=== PATIENT | male | born 1955 | race Caucasian/White ===

== ENCOUNTER 2017-08-31 12:44 | Emergency (ER) | payer OTHER, MEDICARE ==
[2017-08-31 15:14] LABS: HEMOGLOBIN 13.1 g/dl (14.0-18.0); MEAN CORPUSCULAR HEMOGLOBIN 28.4 pg (27.0-33.0); MEAN CORPUSCULAR HGB CONC 34.5 g/dl (32.0-36.5); MEAN CORPUSCULAR VOLUME 82.3 fl (80.0-96.0); PLATELET COUNT, AUTOMATED 242 10^3/uL (150-450); RED BLOOD COUNT 4.62 10^6/uL (4.30-6.10); RED CELL DISTRIBUTION WIDTH 11.8 % (11.5-14.5)
[2017-08-31 15:34] LABS: ALBUMIN 3.3 GM/DL (3.2-5.2); ALBUMIN/GLOBULIN RATIO 0.89 (1.00-1.93); ALKALINE PHOSPHATASE 113 U/L (45-117); ALT/SGPT 21 U/L (12-78); ANION GAP 7 MEQ/L (8-16); AST/SGOT 17 U/L (7-37); BILIRUBIN,DIRECT < 0.1 MG/DL (0.0-0.2); BILIRUBIN,TOTAL 0.3 MG/DL (0.2-1.0); BLOOD UREA NITROGEN 11 MG/DL (7-18); CALCIUM LEVEL 8.5 MG/DL (8.8-10.2); CARBON DIOXIDE LEVEL 30 MEQ/L (21-32); CHLORIDE LEVEL 101 MEQ/L (98-107); CREATININE FOR GFR 0.85 MG/DL (0.70-1.30); ETHYL ALCOHOL (ETHANOL) < 0.003 % (0.000-0.010); GLOMERULAR FILTRATION RATE > 60.0 (>49); GLUCOSE, FASTING 285 MG/DL (70-100); POTASSIUM SERUM 4.2 MEQ/L (3.5-5.1); SALICYLATE LEVEL < 1.7 MG/DL (5.0-30.0); SODIUM LEVEL 138 MEQ/L (136-145); THYROID STIMULATING HORMONE 0.792 uIU/ML (0.358-3.740)
[2017-08-31 15:37] LABS: ACETAMINOPHEN LEVEL < 2.0 UG/ML (10.0-30.0)
[2017-08-31 17:11] LABS: KETONE, URINE AUTO RFX TRACE mg/dL (NEGATIVE); LEUKOCYTE ESTERASE UR AUTO RFX NEGATIVE (NEGATIVE); NITRITE, URINE AUTO RFX NEGATIVE (NEGATIVE); RBC, URINE AUTO RFX 0 /HPF (0-3); SPECIFIC GRAVITY UR AUTO RFX 1.027 (1.002-1.035); SQUAM EPITHELIAL CELL UR AURFX 0 /HPF (0-6); WBC, URINE AUTO RFX 1 /HPF (0-3)
[2017-08-31 17:27] LABS: AMPHETAMINES LEVEL URINE NEGATIVE (NEGATIVE); BARBITURATES URINE NEGATIVE (NEGATIVE); BENZODIAZEPINES URINE NEGATIVE (NEGATIVE); CANNABINOIDS URINE NEGATIVE (NEGATIVE); COCAINE METABOLITE URINE NEGATIVE (NEGATIVE); METHADONE URINE NEGATIVE (NEGATIVE); OPIATES URINE NEGATIVE (NEGATIVE); PHENCYCLIDINE URINE NEGATIVE (NEGATIVE)
[2017-08-31] MEDS: LORazepam 2 MG TAB PO (17:50)
== END 2017-08-31 17:56 | disposition home or self-care (01) ==
LOC: M ED 12:44
DX: F43.9 Reaction to severe stress, unspecified (principal); E11.9 Type 2 diabetes mellitus without complications; I10 Essential (primary) hypertension; F79 Unspecified intellectual disabilities
CPT/HCPCS: 84443

== ENCOUNTER 2018-05-16 09:11 | Outpatient (RCR) | payer MEDICARE, MEDICAID | END 2018-05-31 | LOC: M PT 09:11 | DX: S72.145A Nondisplaced intertrochanteric fracture of left femur, initial encounter for closed fracture (principal) | CPT/HCPCS: 97110 ==

== ENCOUNTER 2018-06-01 10:30 | Outpatient (RCR) | payer MEDICARE | END 2018-06-30 | LOC: M PT 06-06 10:29 | DX: S72.145A Nondisplaced intertrochanteric fracture of left femur, initial encounter for closed fracture (principal); X58.XXXA Exposure to other specified factors, initial encounter | CPT/HCPCS: 97110 ==

== ENCOUNTER 2018-07-28 14:11 | Outpatient (RCR) | payer MEDICARE ==
[~2018-07-28 14:11] MED LIST: ATIV1TAB7 PO; AUGM875T28 PO; HUMA100I3 SC; LISI10TA4 PO; LORA1TAB12 PO; MAGN400T5 PO; PANT40TA3 PO
== END 2018-07-31 ==
LOC: M PT 14:11
PROVIDERS: ATTEND Family Medicine
DX: S72.145A Nondisplaced intertrochanteric fracture of left femur, initial encounter for closed fracture (principal)

== ENCOUNTER 2018-08-17 11:30 | Outpatient (RCR) | payer MEDICARE | END 2018-08-31 | LOC: M PT 11:30 | PROVIDERS: ATTEND Family Medicine | DX: Z47.89 Encounter for other orthopedic aftercare (principal); Z98.890 Other specified postprocedural states; M25.552 Pain in left hip ==

== ENCOUNTER 2019-09-06 09:15 | Emergency (ER) | payer MEDICARE, MEDICAID ==
[~2019-09-06] VITALS: Ht 170.2 cm; Wt 60.9 kg
[~2019-09-06 09:15] MED LIST changes: -LORA1TAB12 PO; +LORA1TAB4 PO
[2019-09-06] MEDS ORDERED: tylenol 2 tabs (09:31)
[2019-09-06] MEDS ORDERED: PROZ40CA PO (09:50)
[2019-09-06] MEDS ORDERED: RISP1TAB3 (09:50)
[2019-09-06] MEDS ORDERED: METF-791 (09:50)
[2019-09-06] MEDS ORDERED: DIVA250T67 (09:50)
[2019-09-06] MEDS ORDERED: ATOR1TAB19 (09:50)
[2019-09-06] MEDS ORDERED: REME15TA2 PO (09:50)
[2019-09-06] MEDS ORDERED: TAMS1CAP17 (09:50)
--- NOTE | 2019-09-06 10:42 | REP ---
Right ribs for views: There are fractures laterally of the right eighth and ninth ribs. AP chest with the patient supine: : Supine positioning precludes evaluation for pneumothorax. There is no hemothorax or pulmonary contusion. Lung moss are clear. Cardiac size is upper normal. The lynette, mediastinum, skeletal structures are unremarkable. Impression: Negative AP supine chest. Electronically Signed by Yuan Wang MD 09/06/2019 10:33 A
[2019-09-06] MEDS ORDERED: ULTR50TA8 PO (10:48)
[2019-09-06 11:08] VITALS: BP 141/74
== END 2019-09-06 11:18 | disposition home or self-care (01) ==
LOC: M ED 09:15
DX: S22.41XA Multiple fractures of ribs, right side, initial encounter for closed fracture (principal); W18.43XA Slipping, tripping and stumbling without falling due to stepping from one level to another, initial encounter; Y92.89 Other specified places as the place of occurrence of the external cause; Y93.89 Activity, other specified; Y99.9 Unspecified external cause status; I10 Essential (primary) hypertension; E11.9 Type 2 diabetes mellitus without complications; F79 Unspecified intellectual disabilities; Z79.84 Long term (current) use of oral hypoglycemic drugs; Z79.899 Other long term (current) drug therapy; Z88.8 Allergy status to other drugs, medicaments and biological substances

== ENCOUNTER → 2020-10-10 | Outpatient (CLI) | payer MEDICARE, MEDICAID ==
[~2020-10-10] MED LIST changes: +ATOR1TAB19; +DIVA250T67; +LISI10TA22 PO; -LISI10TA4 PO; +METF-838; +PANT40TA29 PO; -PANT40TA3 PO; +PROZ40CA PO; +REME15TA2 PO; +RISP-8; +TAMS1CAP17; +ULTR50TA8 PO; +tylenol 2 tabs
--- NOTE | 2020-10-10 10:45 | REP ---
INDICATION: PAIN COMPARISON: None. TECHNIQUE: AP, lateral, bilateral oblique views. FINDINGS: There is no bleak fracture of the distal fibular metadiaphysis with overlying soft tissue swelling. IMPRESSION: Acute oblique fracture of the distal fibula with overlying soft tissue swelling. <Electronically signed by Jesús Payne > 10/10/20 1043
== END ==
LOC: M WUC 09:58
PROVIDERS: ATTEND Physician Assistant
DX: S82.435A Nondisplaced oblique fracture of shaft of left fibula, initial encounter for closed fracture (principal); X58.XXXA Exposure to other specified factors, initial encounter; Y92.9 Unspecified place or not applicable

== ENCOUNTER → 2021-10-02 | Outpatient (CLI) | payer MEDICARE, MEDICAID | LOC: M LABSMTC 09:12 | PROVIDERS: ATTEND Preventive Medicine Undersea and Hyperbaric Medicine | DX: Z01.812 Encounter for preprocedural laboratory examination (principal); R63.4 Abnormal weight loss ==

== ENCOUNTER 2021-10-07 08:23 | Inpatient (IN) | payer MEDICARE, MEDICAID ==
[~2021-10-07] VITALS: Ht 170.2 cm; Wt 54.5 kg
[2021-10-07] MEDS: ENOXAPARIN 40MG/0.4ML SYRINGE (J1650 PER 10MG) SC SCH (09:00)
[2021-10-07 09:04] LABS: EOS % 0.1 % (0.0-3.0); HEMATOCRIT 26.4 % (42.0-52.0); HEMOGLOBIN 9.4 g/dl (13.5-17.5); LYMPH # 0.5 10^3/uL (1.5-5.0); LYMPH % 4.5 % (24.0-44.0); MEAN CORPUSCULAR HEMOGLOBIN 29.7 pg (27.0-33.0); MEAN CORPUSCULAR HGB CONC 35.6 g/dl (32.0-36.5); MEAN CORPUSCULAR VOLUME 83.3 fl (80.0-96.0); MONO # 0.4 10^3/uL (0.0-0.8); MONO % 3.7 % (2.0-8.0); NEUTROPHILS # 9.7 10^3/uL (1.5-8.5); NEUTROPHILS % 91.1 % (36.0-66.0); PLATELET COUNT, AUTOMATED 144 10^3/uL (150-450); RED BLOOD COUNT 3.17 10^6/uL (4.30-6.10); WHITE BLOOD COUNT 10.7 10^3/uL (4.0-10.0)
[2021-10-07 09:34] LABS: ALBUMIN 2.3 GM/DL (3.2-5.2); ALT/SGPT 35 U/L (12-78); BILIRUBIN,TOTAL 0.5 MG/DL (0.2-1.0); BLOOD UREA NITROGEN 11 MG/DL (7-18); CALCIUM LEVEL 8.1 MG/DL (8.8-10.2); CARBON DIOXIDE LEVEL 28 MEQ/L (21-32); CHLORIDE LEVEL 99 MEQ/L (98-107); CREATININE FOR GFR 0.49 MG/DL (0.70-1.30); GLOMERULAR FILTRATION RATE > 60.0 (>49); GLUCOSE, FASTING 118 MG/DL (70-100); SODIUM LEVEL 131 MEQ/L (136-145); TOTAL PROTEIN 5.4 GM/DL (6.4-8.2)
[2021-10-07 10:51] VITALS: O2SAT 84
[2021-10-07] MEDS ORDERED: cefTRIAXone SOD 2 GM in D5W MINI-BAG PLUS 50 ML IV ONE (10:55)
[2021-10-07] MEDS ORDERED: AZITHROMYCIN INJ 500 MG, VIAL MATE ADAPTER 1 EACH in NS 250 ML IV ONE (11:00)
[2021-10-07] MEDS ORDERED: ATIV1TAB7 PO (11:46)
[2021-10-07] MEDS ORDERED: CLIN-30 PO (11:46)
[2021-10-07] MEDS ORDERED: GLIP5TAB8 PO (11:46)
[2021-10-07] MEDS ORDERED: D-50TAB PO (11:46)
[2021-10-07] MEDS ORDERED: FORT600S SC (11:46)
[2021-10-07] MEDS ORDERED: PERI12LIQ PO (11:46)
[2021-10-07] MEDS ORDERED: MIRA3350 PO (11:46)
[2021-10-07] MEDS ORDERED: TRAD5TAB PO (11:46)
[2021-10-07] MEDS ORDERED: HOME MED LIST COMPLETE! XX SCH (11:50)
[2021-10-07] MEDS ORDERED: GLUCOSE 4GM CHEW TABLET PO PRN (11:50)
[2021-10-07] MEDS ORDERED: DEXTROSE 50% 50 ML SYRINGE IV PRN (11:50)
[2021-10-07] MEDS ORDERED: MOM 30ML SUSPENSION UDC PO PRN (11:50)
[2021-10-07] MEDS ORDERED: ACETAMINOPHEN TAB 650MG DOSE (2X325MG) PO PRN (11:50)
[2021-10-07] MEDS ORDERED: GLUCAGON INJ 1MG VIAL SC PRN (11:50)
[2021-10-07] MEDS: HumaLOG INSULIN (NovoLOG) PER UNIT SC SCH ×3 (12:00→20:51)
[2021-10-07] MEDS ORDERED: HumaLOG INSULIN (NovoLOG) PER UNIT SC SCH ×2 (12:00→21:00)
[2021-10-07 15:00] VITALS: BP_SYST 106; BP_SYST 109; BP_DIAS 56
[2021-10-07] MEDS: LORazepam 1 MG TAB PO SCH ×2 (16:53→20:56)
[2021-10-07] MEDS: CHLORHEXIDINE GLUCONATE 0.12 % 15ML UDC (PERIDEX ORAL RINSE) SSP SCH (20:56)
[2021-10-07 22:05] VITALS: BP 113/55
[2021-10-08 06:00] VITALS: BP 104/51
[2021-10-08 06:43] LABS: HEMATOCRIT 25.2 % (42.0-52.0); HEMOGLOBIN 8.9 g/dl (13.5-17.5); MEAN CORPUSCULAR HEMOGLOBIN 29.5 pg (27.0-33.0); MEAN CORPUSCULAR HGB CONC 35.3 g/dl (32.0-36.5); MEAN CORPUSCULAR VOLUME 83.4 fl (80.0-96.0); PLATELET COUNT, AUTOMATED 128 10^3/uL (150-450); RED BLOOD COUNT 3.02 10^6/uL (4.30-6.10); WHITE BLOOD COUNT 8.2 10^3/uL (4.0-10.0)
[2021-10-08 07:12] LABS: BLOOD UREA NITROGEN 8 MG/DL (7-18); CALCIUM LEVEL 8.1 MG/DL (8.8-10.2); CARBON DIOXIDE LEVEL 28 MEQ/L (21-32); CHLORIDE LEVEL 102 MEQ/L (98-107); CREATININE FOR GFR 0.47 MG/DL (0.70-1.30); GLOMERULAR FILTRATION RATE > 60.0 (>49); GLUCOSE, FASTING 88 MG/DL (70-100); MAGNESIUM LEVEL 1.7 MG/DL (1.8-2.4); POTASSIUM SERUM 3.6 MEQ/L (3.5-5.1); SODIUM LEVEL 135 MEQ/L (136-145)
[2021-10-08] MEDS: HumaLOG INSULIN (NovoLOG) PER UNIT SC SCH ×4 (07:30→19:56)
[2021-10-08 08:05] VITALS: BP 104/51
[2021-10-08 08:10] VITALS: BP 104/51
[2021-10-08] MEDS ORDERED: FORTEO SC SCH (09:00)
[2021-10-08] MEDS ORDERED: MIRALAX *UNIT DOSE* 17GM PACKET PO PRN (09:00)
[2021-10-08] MEDS: LORazepam 1 MG TAB PO SCH ×3 (09:07→20:45)
[2021-10-08] MEDS: CHLORHEXIDINE GLUCONATE 0.12 % 15ML UDC (PERIDEX ORAL RINSE) SSP SCH ×2 (09:08→20:45)
[2021-10-08] MEDS: ENOXAPARIN 40MG/0.4ML SYRINGE (J1650 PER 10MG) SC SCH (09:08)
[2021-10-08] MEDS ORDERED: cefTRIAXone SOD 2 GM in D5W MINI-BAG PLUS 50 ML IV SCH (11:00)
[2021-10-08] MEDS ORDERED: AZITHROMYCIN INJ 500 MG, VIAL MATE ADAPTER 1 EACH in NS 250 ML IV SCH (12:00)
[2021-10-08 13:46] VITALS: BP 82/46
[2021-10-08] MEDS: NS 1,000 ML IV SCH ×2 (14:20→23:42)
[2021-10-08 16:10] LABS: MYCOPLASMA PNEUMONIAE IgG 125 U/mL (0-99); MYCOPLASMA PNEUMONIAE IgM <770 U/mL (0-769)
[2021-10-08 21:55] VITALS: BP 101/54
[2021-10-09 06:00] VITALS: BP 125/60
[2021-10-09 07:51] LABS: HEMATOCRIT 26.1 % (42.0-52.0); HEMOGLOBIN 9.1 g/dl (13.5-17.5); MEAN CORPUSCULAR HEMOGLOBIN 29.5 pg (27.0-33.0); MEAN CORPUSCULAR HGB CONC 34.9 g/dl (32.0-36.5); MEAN CORPUSCULAR VOLUME 84.7 fl (80.0-96.0); PLATELET COUNT, AUTOMATED 135 10^3/uL (150-450); RED BLOOD COUNT 3.08 10^6/uL (4.30-6.10); WHITE BLOOD COUNT 6.6 10^3/uL (4.0-10.0)
[2021-10-09 08:19] LABS: BLOOD UREA NITROGEN 9 MG/DL (7-18); CALCIUM LEVEL 7.9 MG/DL (8.8-10.2); CARBON DIOXIDE LEVEL 29 MEQ/L (21-32); CHLORIDE LEVEL 100 MEQ/L (98-107); CREATININE FOR GFR 0.43 MG/DL (0.70-1.30); GLOMERULAR FILTRATION RATE > 60.0 (>49); GLUCOSE, FASTING 129 MG/DL (70-100); MAGNESIUM LEVEL 1.6 MG/DL (1.8-2.4); POTASSIUM SERUM 3.9 MEQ/L (3.5-5.1); SODIUM LEVEL 132 MEQ/L (136-145)
[2021-10-09] MEDS: LORazepam 1 MG TAB PO SCH (08:20)
[2021-10-09] MEDS: ENOXAPARIN 40MG/0.4ML SYRINGE (J1650 PER 10MG) SC SCH (08:20)
[2021-10-09] MEDS: HumaLOG INSULIN (NovoLOG) PER UNIT SC SCH (08:21)
[2021-10-09] MEDS: CHLORHEXIDINE GLUCONATE 0.12 % 15ML UDC (PERIDEX ORAL RINSE) SSP SCH (08:21)
[2021-10-09] MEDS ORDERED: CEFD300CAP PO (08:54)
[2021-10-09] MEDS ORDERED: AZIT-12 PO (08:54)
[2021-10-09] MEDS ORDERED: MAG SULF 1GM/100ML (MAG RUN) 1 GM in IV 1 EA IV ONE (09:00)
[2021-10-09] MEDS ORDERED: CEFDINIR 300 MG CAP (OMNICEF) PO SCH (09:00)
[2021-10-09] MEDS ORDERED: AZITHROMYCIN 250MG TABLET PO SCH (09:00)
[2021-10-09] MEDS ORDERED: MIRALAX *UNIT DOSE* 17GM PACKET PO ONE (09:00)
== END 2021-10-09 12:38 | disposition other institution (70) | DRG 194 ==
LOC: M ED 08:23 → EDBD 08:23 → M ED INP 11:48 → ENRESERV 13:30 → M MS4PR 14:55
PROVIDERS: ADMIT Internal Medicine; ATTEND Internal Medicine
DX: J18.9 Pneumonia, unspecified organism (principal); N39.0 Urinary tract infection, site not specified; E11.9 Type 2 diabetes mellitus without complications; F31.9 Bipolar disorder, unspecified; I10 Essential (primary) hypertension; E78.5 Hyperlipidemia, unspecified; K21.9 Gastro-esophageal reflux disease without esophagitis; R09.02 Hypoxemia; Z90.49 Acquired absence of other specified parts of digestive tract; F79 Unspecified intellectual disabilities; M81.0 Age-related osteoporosis without current pathological fracture; Z79.84 Long term (current) use of oral hypoglycemic drugs; Z79.899 Other long term (current) drug therapy; Z88.8 Allergy status to other drugs, medicaments and biological substances; Z20.822 Contact with and (suspected) exposure to COVID-19; B95.1 Streptococcus, group B, as the cause of diseases classified elsewhere

== ENCOUNTER 2021-12-04 07:58 | Emergency (ER) | payer MEDICARE, MEDICAID ==
[~2021-12-04] VITALS: Ht 167.6 cm; Wt 62.7 kg
[~2021-12-04 07:58] MED LIST changes: +AZIT-12 PO; +CEFD300CAP PO; +CLIN-30 PO; +D-50TAB PO; +FORT600S SC; +GLIP5TAB8 PO; +MIRA3350 PO; +PERI12LIQ PO; +TRAD5TAB PO
[2021-12-04 09:05] LABS: ALT/SGPT 44 U/L (12-78); BILIRUBIN,DIRECT 0.1 MG/DL (0.0-0.2); BILIRUBIN,TOTAL 0.4 MG/DL (0.2-1.0); BLOOD UREA NITROGEN 12 MG/DL (7-18); CALCIUM LEVEL 8.8 MG/DL (8.8-10.2); CARBON DIOXIDE LEVEL 28 MEQ/L (21-32); CHLORIDE LEVEL 91 MEQ/L (98-107); CREATININE FOR GFR 0.46 MG/DL (0.70-1.30); GLOMERULAR FILTRATION RATE > 60.0 (>49); GLUCOSE, FASTING 127 MG/DL (70-100); POTASSIUM SERUM 4.3 MEQ/L (3.5-5.1); SODIUM LEVEL 128 MEQ/L (136-145); TOTAL PROTEIN 6.1 GM/DL (6.4-8.2)
[2021-12-04 09:15] LABS: BASO % 0.1 % (0.0-1.0); HEMATOCRIT 35.3 % (42.0-52.0); HEMOGLOBIN 12.4 g/dl (13.5-17.5); LYMPH # 0.3 10^3/uL (1.5-5.0); LYMPH % 3.1 % (24.0-44.0); MEAN CORPUSCULAR HEMOGLOBIN 29.3 pg (27.0-33.0); MEAN CORPUSCULAR HGB CONC 35.1 g/dl (32.0-36.5); MEAN CORPUSCULAR VOLUME 83.5 fl (80.0-96.0); MONO # 0.6 10^3/uL (0.0-0.8); MONO % 6.2 % (2.0-8.0); NEUTROPHILS # 8.2 10^3/uL (1.5-8.5); NEUTROPHILS % 90.3 % (36.0-66.0); PLATELET COUNT, AUTOMATED 130 10^3/uL (150-450); RED BLOOD COUNT 4.23 10^6/uL (4.30-6.10); WHITE BLOOD COUNT 9.1 10^3/uL (4.0-10.0)
[2021-12-04] MEDS ORDERED: BENZ0.5T23 PO (09:52)
[2021-12-04] MEDS ORDERED: DIVA1TAB48 PO (09:52)
[2021-12-04] MEDS ORDERED: DIVA250T67 PO (09:52)
[2021-12-04] MEDS ORDERED: OYST1TAB PO (09:52)
[2021-12-04] MEDS ORDERED: PANT40TA29 PO (09:52)
[2021-12-04] MEDS ORDERED: FLUO40CA PO (09:52)
[2021-12-04] MEDS ORDERED: BUSP10TA PO (09:52)
[2021-12-04] MEDS ORDERED: SUCR1TAB56 PO (10:12)
[2021-12-04] MEDS ORDERED: FERR32TA PO (10:12)
[2021-12-04] MEDS ORDERED: ATOR1TAB19 PO (10:12)
[2021-12-04] MEDS ORDERED: TAMS1CAP17 PO (10:12)
[2021-12-04] MEDS ORDERED: MAGN400T2 PO (10:12)
[2021-12-04] MEDS ORDERED: MIRT-10 PO (10:12)
[2021-12-04] MEDS ORDERED: RISP0.253 PO (10:23)
[2021-12-04] MEDS ORDERED: HOME MED LIST COMPLETE! XX SCH (10:25)
[2021-12-04 11:45] VITALS: BP 145/74
== END 2021-12-04 12:10 | disposition home or self-care (01) ==
LOC: M ED 07:58
DX: B34.1 Enterovirus infection, unspecified (principal); B34.8 Other viral infections of unspecified site; E11.9 Type 2 diabetes mellitus without complications; I10 Essential (primary) hypertension; E78.5 Hyperlipidemia, unspecified; K21.9 Gastro-esophageal reflux disease without esophagitis; F31.9 Bipolar disorder, unspecified; Z79.84 Long term (current) use of oral hypoglycemic drugs; Z79.899 Other long term (current) drug therapy; Z88.8 Allergy status to other drugs, medicaments and biological substances

== ENCOUNTER → 2022-01-22 | Outpatient (REF) | payer MEDICARE, MEDICAID ==
[~2022-01-22] MED LIST changes: +ATOR1TAB19 PO; +BENZ0.5T23 PO; +BUSP10TA PO; +DIVA1TAB48 PO; +DIVA250T67 PO; +FERR32TA PO; +FLUO40CA PO; +MAGN400T2 PO; +MIRT-10 PO; +OYST1TAB PO; +RISP0.253 PO; +SUCR1TAB56 PO; +TAMS1CAP17 PO
[2022-01-22 13:20] LABS: AMORPHOUS SEDIMENT SMALL (NEGATIVE); APPEARANCE, URINE CLEAR (CLEAR); BACTERIA, URINE AUTO NEGATIVE (NEGATIVE); BILIRUBIN, URINE AUTO NEGATIVE (NEGATIVE); BLOOD, URINE BLOOD NEGATIVE (NEGATIVE); COLOR, URINE STRAW (YELLOW); GLUCOSE, URINE (UA) AUTO NEGATIVE (NEGATIVE); KETONE, URINE AUTO NEGATIVE (NEGATIVE); LEUKOCYTE ESTERASE, URINE AUTO NEGATIVE (NEGATIVE); NITRITE, URINE AUTO NEGATIVE (NEGATIVE); PROTEIN, URINE AUTO NEGATIVE (NEGATIVE); RBC, URINE AUTO 0 /HPF (0-3); SPECIFIC GRAVITY URINE AUTO 1.009 (1.002-1.035); SQUAMOUS EPITHELIAL CELL UR AU 0 /HPF (0-6); UROBILINOGEN, URINE AUTO 0.2 mg/dL (0.0-2.0); WBC, URINE AUTO 0 /HPF (0-3)
== END ==
LOC: M LAB REF 12:17
PROVIDERS: ATTEND Family Medicine
DX: N39.0 Urinary tract infection, site not specified (principal)

== ENCOUNTER 2022-02-15 08:24 | Emergency (ER) | payer MEDICARE, MEDICAID ==
[2022-02-15] MEDS ORDERED: IBUPROFEN 400MG TAB PO ONE (10:00)
[2022-02-15 12:47] VITALS: BP 147/83
== END 2022-02-15 12:55 | disposition home or self-care (01) ==
LOC: M ED 08:24
DX: S70.01XA Contusion of right hip, initial encounter (principal); W06.XXXA Fall from bed, initial encounter; Y92.099 Unspecified place in other non-institutional residence as the place of occurrence of the external cause; E11.9 Type 2 diabetes mellitus without complications; I10 Essential (primary) hypertension; E78.5 Hyperlipidemia, unspecified; Z79.899 Other long term (current) drug therapy; Z88.8 Allergy status to other drugs, medicaments and biological substances

== ENCOUNTER → 2022-03-16 | Outpatient (CLI) | payer MEDICARE, MEDICAID | LOC: M WUC 13:10 | PROVIDERS: ATTEND Specialist | DX: Z12.5 Encounter for screening for malignant neoplasm of prostate (principal) | CPT/HCPCS: 36415; G0103 ==

== ENCOUNTER → 2022-03-19 | Outpatient (CLI) | payer MEDICARE, MEDICAID ==
[2022-03-19 12:23] LABS: HEMOGLOBIN A1c 5.4 %
[2022-03-19 16:40] LABS: TOTAL PROTEIN 6.5 GM/DL (6.4-8.2)
[2022-03-19 16:57] LABS: VITAMIN B12 LEVEL 1647 PG/ML (247-911)
[2022-03-25 07:07] LABS: CERULOPLASMIN 23.8 mg/dL (16.0-31.0); VITAMIN B1 LEVEL WHOLE BLOOD 70.6 nmol/L (66.5-200.0); VITAMIN B6,PYRIDOXAL PHOSPHATE 1.8 ug/L (3.4-65.2); VITAMIN E(ALPHA TOCOPHEROL) 17.3 mg/L (9.0-29.0); VITAMIN E(GAMMA TOCOPHEROL) 0.7 mg/L (0.5-4.9)
[2022-03-25 07:49] LABS: ALBUMIN 3.43 GM/DL (3.29-5.55); ALBUMIN % 52.8 % (55.8-66.1); ALPHA-1-GLOBULIN % 6.6 % (2.9-4.9); ALPHA-1-GLOBULINS 0.43 GM/DL (0.17-0.41); ALPHA-2-GLOBULINS 0.77 GM/DL (0.42-0.99); ALPHA-2-GLOBULINS % 11.8 % (7.1-11.8); BETA-1-GLOBULINS 0.37 GM/DL (0.28-0.60); BETA-1-GLOBULINS % 5.7 % (4.7-7.2); BETA-2-GLOBULINS 0.45 GM/DL (0.19-0.55); BETA-2-GLOBULINS % 6.9 % (3.2-6.5); GAMMA GLOBULIN % 16.2 % (11.1-18.8); GAMMA GLOBULINS 1.05 GM/DL (0.65-1.58)
== END ==
LOC: M LAB 11:12
PROVIDERS: ATTEND Psychiatry & Neurology Neurology
DX: R53.1 Weakness (principal); E53.8 Deficiency of other specified B group vitamins; E11.40 Type 2 diabetes mellitus with diabetic neuropathy, unspecified; E61.0 Copper deficiency; R26.89 Other abnormalities of gait and mobility

== ENCOUNTER → 2022-03-19 | Outpatient (CLI) | payer MEDICARE, MEDICAID | LOC: M WUC 10:17 | PROVIDERS: ATTEND Psychiatry & Neurology Neurology | DX: Z53.9 Procedure and treatment not carried out, unspecified reason (principal) ==

== ENCOUNTER → 2022-04-25 | Outpatient (CLI) | payer MEDICARE, MEDICAID | LOC: M LABSMTC 10:21 | PROVIDERS: ATTEND Anesthesiology | DX: Z01.812 Encounter for preprocedural laboratory examination (principal); Z20.822 Contact with and (suspected) exposure to COVID-19 ==

== ENCOUNTER → 2022-04-27 | Outpatient (CLI) | payer MEDICARE, MEDICAID ==
[2022-04-27 11:56] LABS: ALBUMIN 2.8 GM/DL (3.2-5.2); ALT/SGPT 23 U/L (12-78); BILIRUBIN,TOTAL 0.5 MG/DL (0.2-1.0); BLOOD UREA NITROGEN 15 MG/DL (7-18); CALCIUM LEVEL 8.5 MG/DL (8.8-10.2); CARBON DIOXIDE LEVEL 36 MEQ/L (21-32); CHLORIDE LEVEL 98 MEQ/L (98-107); CREATININE FOR GFR 0.51 MG/DL (0.70-1.30); GLOMERULAR FILTRATION RATE > 60.0 (>49); GLUCOSE, FASTING 77 MG/DL (70-100); POTASSIUM SERUM 3.8 MEQ/L (3.5-5.1); SODIUM LEVEL 136 MEQ/L (136-145); TOTAL PROTEIN 6.1 GM/DL (6.4-8.2)
== END ==
LOC: M EKG 10:28
PROVIDERS: ATTEND Family Medicine
DX: Z01.818 Encounter for other preprocedural examination (principal); E11.9 Type 2 diabetes mellitus without complications; E78.5 Hyperlipidemia, unspecified

== ENCOUNTER → 2022-04-27 | Outpatient (CLI) | payer MEDICARE, MEDICAID | LOC: M RAD 10:20 | PROVIDERS: ATTEND Psychiatry & Neurology Neurology | DX: M54.59 Other low back pain (principal); M43.06 Spondylolysis, lumbar region; R26.81 Unsteadiness on feet; Z53.9 Procedure and treatment not carried out, unspecified reason ==

== ENCOUNTER → 2022-05-20 | Outpatient (CLI) | payer MEDICARE, MEDICAID | LOC: M LABSMTC 09:36 | PROVIDERS: ATTEND Anesthesiology | DX: Z01.812 Encounter for preprocedural laboratory examination (principal); Z11.52 Encounter for screening for COVID-19 ==

== ENCOUNTER → 2022-06-10 | Outpatient (CLI) | payer MEDICARE, MEDICAID ==
[~2022-06-10] MED LIST changes: +ACET-907 PO; +CALC-205 PO; +CEFD300C PO; +DEPA250T32 PO; +DRIS50003 PO; +GLUCLIQ37 PO; +KETO2CR TOP; +QUET1TAB17 PO; +RISP-7 PO
== END ==
LOC: M WHC 11:03
PROVIDERS: ATTEND Internal Medicine Endocrinology, Diabetes & Metabolism
DX: M81.0 Age-related osteoporosis without current pathological fracture (principal); M85.88 Other specified disorders of bone density and structure, other site

== ENCOUNTER 2022-06-11 07:31 | Emergency (ER) | payer MEDICARE, MEDICAID ==
[~2022-06-11 07:31] MED LIST changes: -ACET-907 PO; -CALC-205 PO; -CEFD300C PO; -DEPA250T32 PO; -DRIS50003 PO; -GLUCLIQ37 PO; -KETO2CR TOP; -QUET1TAB17 PO; -RISP-7 PO
[2022-06-11 08:06] LABS: VENOUS BASE EXCESS 5.1 (-2.0-2.0); VENOUS HCO3 28.4 MEQ/L (23.0-27.0); VENOUS O2 SATURATION 98.6 % (60.0-80.0); VENOUS PARTIAL PRESSURE CO2 36.6 mmHg (38.0-50.0); VENOUS PARTIAL PRESSURE O2 127.1 mmHg (30.0-50.0); VENOUS PH 7.507 UNITS (7.330-7.430); VENOUS STANDARD HCO3 29.1 MEQ/L; VENOUS TOTAL CO2 29.5 MEQ/L (24.0-28.0)
[2022-06-11 08:09] LABS: BASO % 0.3 % (0.0-1.0); EOS # 0.1 10^3/uL (0.0-0.5); EOS % 1.2 % (0.0-3.0); HEMATOCRIT 31.2 % (42.0-52.0); HEMOGLOBIN 10.3 g/dl (13.5-17.5); LYMPH # 1.2 10^3/uL (1.5-5.0); LYMPH % 20.7 % (24.0-44.0); MEAN CORPUSCULAR VOLUME 87.9 fl (80.0-96.0); MONO # 0.5 10^3/uL (0.0-0.8); MONO % 8.7 % (2.0-8.0); NEUTROPHILS # 4.1 10^3/uL (1.5-8.5); NEUTROPHILS % 68.9 % (36.0-66.0); PLATELET COUNT, AUTOMATED 131 10^3/uL (150-450); RED BLOOD COUNT 3.55 10^6/uL (4.30-6.10)
[2022-06-11 08:39] LABS: RSV AMPLIFICATION NEGATIVE (NEGATIVE)
[2022-06-11 08:44] LABS: ALBUMIN 2.4 GM/DL (3.2-5.2); ALT/SGPT 17 U/L (12-78); BILIRUBIN,DIRECT 0.1 MG/DL (0.0-0.2); BILIRUBIN,TOTAL 0.2 MG/DL (0.2-1.0); BLOOD UREA NITROGEN 13 MG/DL (7-18); CALCIUM LEVEL 8.1 MG/DL (8.8-10.2); CARBON DIOXIDE LEVEL 28 MEQ/L (21-32); CHLORIDE LEVEL 106 MEQ/L (98-107); CREATININE FOR GFR 0.69 MG/DL (0.70-1.30); GLOMERULAR FILTRATION RATE > 60.0 (>49); GLUCOSE, FASTING 127 MG/DL (70-100); MAGNESIUM LEVEL 1.8 MG/DL (1.8-2.4); PHOSPHORUS LEVEL 2.9 MG/DL (2.5-4.9); POTASSIUM SERUM 3.9 MEQ/L (3.5-5.1); SODIUM LEVEL 140 MEQ/L (136-145); TOTAL PROTEIN 5.8 GM/DL (6.4-8.2)
[2022-06-11] MEDS ORDERED: KETO2CR TOP (09:01)
[2022-06-11] MEDS ORDERED: CALC-205 PO (09:05)
[2022-06-11] MEDS ORDERED: QUET1TAB17 PO (09:06)
[2022-06-11] MEDS ORDERED: DRIS50003 PO (09:11)
[2022-06-11] MEDS ORDERED: RISP-7 PO ×2 (09:11)
[2022-06-11] MEDS ORDERED: ACET-907 PO (09:15)
[2022-06-11] MEDS ORDERED: GLUCLIQ37 PO (09:15)
[2022-06-11] MEDS ORDERED: HOME MED LIST COMPLETE! XX SCH (09:20)
[2022-06-11] MEDS ORDERED: CEFD300C PO (10:54)
[2022-06-11] MEDS ORDERED: DEPA250T32 PO (10:54)
[2022-06-11 11:15] VITALS: BP 130/74
[2022-06-11 11:40] LABS: VALPROIC ACID (DEPAKOTE) 33.9 UG/ML (50.0-100.0)
== END 2022-06-11 11:39 | disposition home or self-care (01) ==
LOC: M ED 07:31 → EDBD 07:31 → M ED 11:39
DX: R56.9 Unspecified convulsions (principal); E11.9 Type 2 diabetes mellitus without complications; G20 Parkinson's disease; F79 Unspecified intellectual disabilities; Z79.899 Other long term (current) drug therapy; Z88.8 Allergy status to other drugs, medicaments and biological substances

== ENCOUNTER → 2022-06-20 | Outpatient (CLI) | payer MEDICARE, MEDICAID ==
[~2022-06-20] MED LIST changes: +ACET-907 PO; +CALC-205 PO; +CEFD300C PO; +DEPA250T32 PO; +DRIS50003 PO; +GLUCLIQ37 PO; +KETO2CR TOP; +QUET1TAB17 PO; +RISP-7 PO
== END ==
LOC: M LABSMTC 10:54
PROVIDERS: ATTEND Anesthesiology
DX: Z01.812 Encounter for preprocedural laboratory examination (principal); Z11.52 Encounter for screening for COVID-19

== ENCOUNTER → 2022-06-22 | Outpatient (CLI) | payer MEDICARE, MEDICAID ==
[~2022-06-22] MED LIST changes: +LIDOCAINE 2% 100MG/5ML SDV (FOR ANES.) ONE; +propofoL 200 MG/20 ML VIAL ONE
[2022-06-22 11:00] VITALS: BP 142/67
== END ==
LOC: M RAD 08:17
PROVIDERS: ATTEND Psychiatry & Neurology Neurology
DX: M54.59 Other low back pain (principal); M43.06 Spondylolysis, lumbar region; R26.81 Unsteadiness on feet; M48.02 Spinal stenosis, cervical region; M50.01 Cervical disc disorder with myelopathy, high cervical region; M50.021 Cervical disc disorder at C4-C5 level with myelopathy; M50.023 Cervical disc disorder at C6-C7 level with myelopathy; M47.12 Other spondylosis with myelopathy, cervical region; M47.816 Spondylosis without myelopathy or radiculopathy, lumbar region; M48.061 Spinal stenosis, lumbar region without neurogenic claudication; M51.86 Other intervertebral disc disorders, lumbar region

== ENCOUNTER → 2022-07-30 | Outpatient (CLI) | payer MEDICARE, MEDICAID ==
[~2022-07-30] MED LIST changes: -LIDOCAINE 2% 100MG/5ML SDV (FOR ANES.) ONE; -propofoL 200 MG/20 ML VIAL ONE
[2022-07-30 16:55] LABS: ALBUMIN 2.7 G/DL (3.2-5.2); ALKALINE PHOSPHATASE 107 U/L (46-116); ALT/SGPT 109 U/L (7.0-40); AST/SGOT 50 U/L (<34); BILIRUBIN,TOTAL 0.3 MG/DL (0.3-1.2); BLOOD UREA NITROGEN 10 MG/DL (9-23); CALCIUM LEVEL 8.3 MG/DL (8.3-10.6); CARBON DIOXIDE LEVEL 28 MMOL/L (20-31); CHLORIDE LEVEL 94 MMOL/L (98-107); CREATININE FOR GFR 0.52 MG/DL (0.70-1.30); GLOMERULAR FILTRATION RATE > 60.0 (>49); GLUCOSE, FASTING 289 MG/DL (74-106); SODIUM LEVEL 132 MMOL/L (136-145); TOTAL 25(OH) VITAMIN D 84.1 NG/ML (20.0-100.0); TOTAL PROTEIN 6.3 G/DL (5.7-8.2)
== END ==
LOC: M WUC 12:41
PROVIDERS: ATTEND Internal Medicine Endocrinology, Diabetes & Metabolism
DX: M81.0 Age-related osteoporosis without current pathological fracture (principal); E55.9 Vitamin D deficiency, unspecified

== ENCOUNTER → 2022-08-16 | Outpatient (CLI) | payer MEDICARE, MEDICAID ==
[2022-08-16 13:01] LABS: BASO % 0.5 % (0.0-1.0); EOS # 0.1 10^3/uL (0.0-0.5); HEMATOCRIT 35.6 % (42.0-52.0); HEMOGLOBIN 11.5 g/dl (13.5-17.5); LYMPH # 1.6 10^3/uL (1.5-5.0); LYMPH % 26.4 % (24.0-44.0); MEAN CORPUSCULAR HEMOGLOBIN 28.5 pg (27.0-33.0); MEAN CORPUSCULAR HGB CONC 32.3 g/dl (32.0-36.5); MEAN CORPUSCULAR VOLUME 88.1 fl (80.0-96.0); MONO # 0.6 10^3/uL (0.0-0.8); NEUTROPHILS # 3.6 10^3/uL (1.5-8.5); NEUTROPHILS % 61.8 % (36.0-66.0); PLATELET COUNT, AUTOMATED 159 10^3/uL (150-450); RED BLOOD COUNT 4.04 10^6/uL (4.30-6.10); WHITE BLOOD COUNT 5.9 10^3/uL (4.0-10.0)
[2022-08-16 13:31] LABS: VALPROIC ACID (DEPAKOTE) 45.5 UG/ML (50.0-100.0)
[2022-08-16 13:33] LABS: ALBUMIN 2.7 G/DL (3.2-5.2); ALKALINE PHOSPHATASE 78 U/L (46-116); ALT/SGPT 22 U/L (7.0-40); AST/SGOT 17 U/L (<34); BILIRUBIN,TOTAL 0.3 MG/DL (0.3-1.2); BLOOD UREA NITROGEN 18 MG/DL (9-23); CALCIUM LEVEL 8.3 MG/DL (8.3-10.6); CARBON DIOXIDE LEVEL 27 MMOL/L (20-31); CHLORIDE LEVEL 97 MMOL/L (98-107); CREATININE FOR GFR 0.82 MG/DL (0.70-1.30); GLOMERULAR FILTRATION RATE > 60.0 (>49); GLUCOSE, FASTING 201 MG/DL (74-106); POTASSIUM SERUM 3.8 MMOL/L (3.5-5.1); SODIUM LEVEL 132 MMOL/L (136-145); TOTAL PROTEIN 5.9 G/DL (5.7-8.2)
[2022-08-16 13:35] LABS: FOLATE 15.28 NG/ML (>5.4); VITAMIN B12 LEVEL 1255 PG/ML (211-911)
== END ==
LOC: M WUC 09:08
PROVIDERS: ATTEND Psychiatry & Neurology Neurology
DX: R26.89 Other abnormalities of gait and mobility (principal); R56.9 Unspecified convulsions; E51.9 Thiamine deficiency, unspecified; E53.8 Deficiency of other specified B group vitamins; E53.1 Pyridoxine deficiency; Z79.899 Other long term (current) drug therapy

== ENCOUNTER → 2022-09-29 | Outpatient (CLI) | payer MEDICARE, MEDICAID ==
[2022-09-29 16:35] LABS: VALPROIC ACID (DEPAKOTE) 44.3 UG/ML (50.0-100.0)
[2022-09-29 16:40] LABS: PROLACTIN 12.54 NG/ML (2.1-17.7)
== END ==
LOC: M WUC 13:43
PROVIDERS: ATTEND Physician Assistant
DX: Z79.899 Other long term (current) drug therapy (principal)

== ENCOUNTER → 2022-09-29 | Outpatient (CLI) | payer MEDICARE, MEDICAID ==
[2022-09-29 16:37] LABS: ALKALINE PHOSPHATASE 74 U/L (46-116); ALT/SGPT 17 U/L (7.0-40); AST/SGOT 16 U/L (<34); BILIRUBIN,TOTAL 0.4 MG/DL (0.3-1.2); BLOOD UREA NITROGEN 13 MG/DL (9-23); CALCIUM LEVEL 8.5 MG/DL (8.3-10.6); CARBON DIOXIDE LEVEL 33 MMOL/L (20-31); CHLORIDE LEVEL 97 MMOL/L (98-107); CHOLESTEROL LEVEL 141 MG/DL (<200); CHOLESTEROL RISK RATIO 2.84 (<5); CREATININE FOR GFR 0.54 MG/DL (0.70-1.30); GLOMERULAR FILTRATION RATE > 60.0 (>49); GLUCOSE, FASTING 264 MG/DL (74-106); HDL CHOLESTEROL 49.5 MG/DL (>40); LDL CHOLESTEROL 74.5 MG/DL (<100); NON-HDL-C 92 MG/DL; POTASSIUM SERUM 4.3 MMOL/L (3.5-5.1); SODIUM LEVEL 134 MMOL/L (136-145); TOTAL PROTEIN 6.2 G/DL (5.7-8.2); TRIGLYCERIDES LEVEL 85 MG/DL (<150)
[2022-09-29 16:39] LABS: BASO % 0.5 % (0.0-1.0); EOS # 0.1 10^3/uL (0.0-0.5); EOS % 1.2 % (0.0-3.0); HEMATOCRIT 35.2 % (42.0-52.0); HEMOGLOBIN 11.7 g/dl (13.5-17.5); LYMPH # 1.8 10^3/uL (1.5-5.0); LYMPH % 31.3 % (24.0-44.0); MEAN CORPUSCULAR HEMOGLOBIN 29.3 pg (27.0-33.0); MEAN CORPUSCULAR HGB CONC 33.2 g/dl (32.0-36.5); MEAN CORPUSCULAR VOLUME 88.2 fl (80.0-96.0); MONO # 0.5 10^3/uL (0.0-0.8); MONO % 8.9 % (2.0-8.0); NEUTROPHILS # 3.3 10^3/uL (1.5-8.5); NEUTROPHILS % 57.9 % (36.0-66.0); PLATELET COUNT, AUTOMATED 164 10^3/uL (150-450); RED BLOOD COUNT 3.99 10^6/uL (4.30-6.10); WHITE BLOOD COUNT 5.6 10^3/uL (4.0-10.0)
== END ==
LOC: M WUC 13:40
PROVIDERS: ATTEND Family Medicine
DX: E11.9 Type 2 diabetes mellitus without complications (principal); E78.5 Hyperlipidemia, unspecified; Z79.899 Other long term (current) drug therapy

== ENCOUNTER → 2022-09-30 | Outpatient (REF) | payer MEDICARE, MEDICAID ==
[2022-09-30 10:21] LABS: AMORPHOUS SEDIMENT SMALL (NEGATIVE); APPEARANCE, URINE CLOUDY (CLEAR); BACTERIA, URINE AUTO 2+ (NEGATIVE); BILIRUBIN, URINE AUTO NEGATIVE (NEGATIVE); BLOOD, URINE BLOOD 1+ (NEGATIVE); COLOR, URINE YELLOW (YELLOW); GLUCOSE, URINE (UA) AUTO NEGATIVE (NEGATIVE); KETONE, URINE AUTO NEGATIVE (NEGATIVE); LEUKOCYTE ESTERASE, URINE AUTO 3+ (NEGATIVE); NITRITE, URINE AUTO NEGATIVE (NEGATIVE); PROTEIN, URINE AUTO NEGATIVE (NEGATIVE); RBC, URINE AUTO 13 /HPF (0-3); SPECIFIC GRAVITY URINE AUTO 1.005 (1.002-1.035); SQUAMOUS EPITHELIAL CELL UR AU 0 /HPF (0-6); UROBILINOGEN, URINE AUTO 0.2 mg/dL (0.0-2.0); WBC, URINE AUTO 156 /HPF (0-3)
== END ==
LOC: M LAB REF 09:30
PROVIDERS: ATTEND Family Medicine
DX: E11.9 Type 2 diabetes mellitus without complications (principal); E78.5 Hyperlipidemia, unspecified

== ENCOUNTER 2022-10-26 09:16 | Emergency (ER) | payer MEDICARE, MEDICAID ==
[~2022-10-26] VITALS: Ht 172.7 cm; Wt 58.2 kg
[2022-10-26 10:03] LABS: BASO % 0.2 % (0.0-1.0); HEMATOCRIT 30.7 % (42.0-52.0); HEMOGLOBIN 10.2 g/dl (13.5-17.5); LYMPH # 0.9 10^3/uL (1.5-5.0); LYMPH % 15.9 % (24.0-44.0); MEAN CORPUSCULAR HEMOGLOBIN 29.7 pg (27.0-33.0); MEAN CORPUSCULAR HGB CONC 33.2 g/dl (32.0-36.5); MEAN CORPUSCULAR VOLUME 89.2 fl (80.0-96.0); MONO # 0.9 10^3/uL (0.0-0.8); MONO % 15.9 % (2.0-8.0); NEUTROPHILS # 3.8 10^3/uL (1.5-8.5); NEUTROPHILS % 67.6 % (36.0-66.0); PLATELET COUNT, AUTOMATED 101 10^3/uL (150-450); RED BLOOD COUNT 3.44 10^6/uL (4.30-6.10); WHITE BLOOD COUNT 5.7 10^3/uL (4.0-10.0)
[2022-10-26 10:22] LABS: OSMOLALITY SERUM 304 MOSM/KG (280-301)
[2022-10-26 10:37] LABS: ALBUMIN 2.5 G/DL (3.2-5.2); ALKALINE PHOSPHATASE 94 U/L (46-116); ALT/SGPT 52 U/L (7.0-40); AST/SGOT 52 U/L (<34); BILIRUBIN,DIRECT 0.2 MG/DL (<0.4); BILIRUBIN,TOTAL 0.4 MG/DL (0.3-1.2); BLOOD UREA NITROGEN 17 MG/DL (9-23); CALCIUM LEVEL 7.8 MG/DL (8.3-10.6); CARBON DIOXIDE LEVEL 29 MMOL/L (20-31); CHLORIDE LEVEL 101 MMOL/L (98-107); CREATININE FOR GFR 0.68 MG/DL (0.70-1.30); GLOMERULAR FILTRATION RATE > 60.0 (>49); GLUCOSE, FASTING 391 MG/DL (74-106); POTASSIUM SERUM 3.6 MMOL/L (3.5-5.1); SODIUM LEVEL 137 MMOL/L (136-145); TOTAL PROTEIN 5.3 G/DL (5.7-8.2)
[2022-10-26 10:40] LABS: THYROID STIMULATING HORMONE 1.501 uIU/ML (0.55-4.78)
[2022-10-26] MEDS ORDERED: HumuLIN R (REGULAR) INSULIN (NovoLIN R) **100U/ML** PER UNIT IV ONE (10:55)
[2022-10-26] MEDS ORDERED: NS 1,000 ML IV ONE (10:55)
[2022-10-26] MEDS ORDERED: CIPR500T39 PO (12:43)
[2022-10-26 13:00] VITALS: BP 136/67
== END 2022-10-26 13:57 | disposition home or self-care (01) ==
LOC: EDBD 09:16 → M ED 09:16
DX: N39.0 Urinary tract infection, site not specified (principal); E11.9 Type 2 diabetes mellitus without complications; I10 Essential (primary) hypertension; E78.5 Hyperlipidemia, unspecified; K21.9 Gastro-esophageal reflux disease without esophagitis; F31.9 Bipolar disorder, unspecified; G31.84 Mild cognitive impairment of uncertain or unknown etiology; Z79.899 Other long term (current) drug therapy; Z88.8 Allergy status to other drugs, medicaments and biological substances
CPT/HCPCS: 70450; 71045; 80048; 80076; 81001; 82140; 83930; 84443; 85025; 87040; 87088; 87186; 93005; 93041; 94760; 96360; 96361; 99285; J1815

== ENCOUNTER 2022-11-09 13:53 | Emergency (ER) | payer MEDICARE, MEDICAID ==
[~2022-11-09] VITALS: Ht 170.2 cm; Wt 55.9 kg
[~2022-11-09 13:53] MED LIST changes: +CIPR500T39 PO
[2022-11-09 14:40] LABS: BASO % 0.1 % (0.0-1.0); EOS # 0.1 10^3/uL (0.0-0.5); HEMATOCRIT 30.8 % (42.0-52.0); LYMPH # 1.6 10^3/uL (1.5-5.0); LYMPH % 24.1 % (24.0-44.0); MEAN CORPUSCULAR HEMOGLOBIN 28.9 pg (27.0-33.0); MEAN CORPUSCULAR HGB CONC 32.5 g/dl (32.0-36.5); MONO # 0.6 10^3/uL (0.0-0.8); MONO % 8.3 % (2.0-8.0); NEUTROPHILS # 4.5 10^3/uL (1.5-8.5); NEUTROPHILS % 66.2 % (36.0-66.0); PLATELET COUNT, AUTOMATED 154 10^3/uL (150-450); RED BLOOD COUNT 3.46 10^6/uL (4.30-6.10); WHITE BLOOD COUNT 6.8 10^3/uL (4.0-10.0)
[2022-11-09] MEDS ORDERED: NS 1,000 ML IV ONE ×2 (14:50→16:25)
[2022-11-09 15:08] LABS: ALBUMIN 2.5 G/DL (3.2-5.2); ALKALINE PHOSPHATASE 80 U/L (46-116); ALT/SGPT 17 U/L (7.0-40); AST/SGOT 15 U/L (<34); BILIRUBIN,DIRECT 0.1 MG/DL (<0.4); BILIRUBIN,TOTAL 0.3 MG/DL (0.3-1.2); BLOOD UREA NITROGEN 13 MG/DL (9-23); CALCIUM LEVEL 8.2 MG/DL (8.3-10.6); CARBON DIOXIDE LEVEL 30 MMOL/L (20-31); CHLORIDE LEVEL 101 MMOL/L (98-107); GLOMERULAR FILTRATION RATE > 60.0 (>49); GLUCOSE, FASTING 318 MG/DL (74-106); POTASSIUM SERUM 3.7 MMOL/L (3.5-5.1); SODIUM LEVEL 137 MMOL/L (136-145); TOTAL PROTEIN 5.6 G/DL (5.7-8.2)
[2022-11-09 15:33] LABS: HEMOGLOBIN A1c 8.8 % (4.0-6.0)
[2022-11-09 18:26] VITALS: BP 151/79
== END 2022-11-09 18:30 | disposition home or self-care (01) ==
LOC: M ED 13:53 → EDBD 13:53 → M ED 18:30
DX: E11.65 Type 2 diabetes mellitus with hyperglycemia (principal); B34.8 Other viral infections of unspecified site; I10 Essential (primary) hypertension; D50.9 Iron deficiency anemia, unspecified; F31.9 Bipolar disorder, unspecified; F79 Unspecified intellectual disabilities; Z79.899 Other long term (current) drug therapy; Z88.8 Allergy status to other drugs, medicaments and biological substances

== ENCOUNTER → 2022-11-17 | Outpatient (CLI) | payer MEDICARE, MEDICAID ==
[2022-11-17 17:33] LABS: BLOOD UREA NITROGEN 20 MG/DL (9-23); CALCIUM LEVEL 9.2 MG/DL (8.3-10.6); CARBON DIOXIDE LEVEL 30 MMOL/L (20-31); CHLORIDE LEVEL 98 MMOL/L (98-107); CREATININE FOR GFR 0.65 MG/DL (0.70-1.30); GLOMERULAR FILTRATION RATE > 60.0 (>49); GLUCOSE, FASTING 162 MG/DL (74-106); POTASSIUM SERUM 4.2 MMOL/L (3.5-5.1); SODIUM LEVEL 137 MMOL/L (136-145)
== END ==
LOC: M WUC 11:25
PROVIDERS: ATTEND Internal Medicine Endocrinology, Diabetes & Metabolism
DX: M81.0 Age-related osteoporosis without current pathological fracture (principal)

== ENCOUNTER → 2022-12-20 | Outpatient (CLI) | payer MEDICARE, MEDICAID ==
[~2022-12-20] MED LIST changes: +BENZ0.5T2 PO; -BENZ0.5T23 PO; +LORA1TAB23 PO; -LORA1TAB4 PO
[2022-12-20 17:04] LABS: VALPROIC ACID (DEPAKOTE) 31.6 UG/ML (50.0-100.0)
[2022-12-20 17:06] LABS: ALKALINE PHOSPHATASE 68 U/L (46-116); ALT/SGPT 18 U/L (7.0-40); AST/SGOT 14 U/L (<34); BILIRUBIN,TOTAL 0.4 MG/DL (0.3-1.2); BLOOD UREA NITROGEN 17 MG/DL (9-23); CALCIUM LEVEL 9.3 MG/DL (8.3-10.6); CARBON DIOXIDE LEVEL 31 MMOL/L (20-31); CHLORIDE LEVEL 100 MMOL/L (98-107); CREATININE FOR GFR 0.64 MG/DL (0.70-1.30); GLOMERULAR FILTRATION RATE > 60.0 (>49); GLUCOSE, FASTING 134 MG/DL (74-106); POTASSIUM SERUM 3.8 MMOL/L (3.5-5.1); SODIUM LEVEL 135 MMOL/L (136-145); TOTAL PROTEIN 6.4 G/DL (5.7-8.2)
[2022-12-20 17:15] LABS: BASO # 0.1 10^3/uL (0.0-0.2); BASO % 0.6 % (0.0-1.0); EOS # 0.2 10^3/uL (0.0-0.5); HEMATOCRIT 37.8 % (42.0-52.0); HEMOGLOBIN 11.9 g/dl (13.5-17.5); LYMPH # 2.5 10^3/uL (1.5-5.0); LYMPH % 29.6 % (24.0-44.0); MEAN CORPUSCULAR HEMOGLOBIN 28.1 pg (27.0-33.0); MEAN CORPUSCULAR HGB CONC 31.5 g/dl (32.0-36.5); MEAN CORPUSCULAR VOLUME 89.2 fl (80.0-96.0); MONO # 0.8 10^3/uL (0.0-0.8); MONO % 9.5 % (2.0-8.0); NEUTROPHILS # 4.8 10^3/uL (1.5-8.5); NEUTROPHILS % 57.9 % (36.0-66.0); PLATELET COUNT, AUTOMATED 234 10^3/uL (150-450); RED BLOOD COUNT 4.24 10^6/uL (4.30-6.10); WHITE BLOOD COUNT 8.3 10^3/uL (4.0-10.0)
== END ==
LOC: M WUC 11:30
PROVIDERS: ATTEND Psychiatry & Neurology Neurology
DX: R56.9 Unspecified convulsions (principal); Z79.899 Other long term (current) drug therapy

== ENCOUNTER → 2023-01-11 | Outpatient (CLI) | payer MEDICARE, MEDICAID ==
[~2023-01-11] MED LIST changes: +ACET1TAB55 PO; +AMOX875T2 PO; +CVS13CRE TOP; +DEBR6.5S4 AU; +DIVA500T94 PO; +METF-839 PO; +METF500T13 PO; +TRIPOIN9 TOP; +ZITHTAB PO; +[UNRECOGNIZED DRUG - CODE] PO
== END ==
LOC: M PLALAB 10:08
PROVIDERS: ATTEND Specialist
DX: C61 Malignant neoplasm of prostate (principal)

== ENCOUNTER 2023-01-13 08:06 | Emergency (ER) | payer MEDICARE, MEDICAID ==
[~2023-01-13] VITALS: Ht 170.2 cm; Wt 63.4 kg
[~2023-01-13 08:06] MED LIST changes: -ACET1TAB55 PO; -AMOX875T2 PO; -CVS13CRE TOP; -DEBR6.5S4 AU; -DIVA500T94 PO; -METF-839 PO; -METF500T13 PO; -TRIPOIN9 TOP; -ZITHTAB PO; -[UNRECOGNIZED DRUG - CODE] PO
[2023-01-13 08:55] LABS: VENOUS BASE EXCESS 3.2 (-2.0-2.0); VENOUS HCO3 27.8 MMOL/L (23.0-27.0); VENOUS O2 SATURATION 91.4 % (60.0-80.0); VENOUS PARTIAL PRESSURE CO2 42.7 mmHg (38.0-50.0); VENOUS PARTIAL PRESSURE O2 63.5 mmHg (30.0-50.0); VENOUS PH 7.432 UNITS (7.330-7.430); VENOUS STANDARD HCO3 27.1 MMOL/L; VENOUS TOTAL CO2 29.1 MMOL/L (24.0-28.0)
[2023-01-13 09:00] LABS: BASO % 0.2 % (0.0-1.0); EOS % 0.1 % (0.0-3.0); HEMATOCRIT 36.9 % (42.0-52.0); HEMOGLOBIN 12.4 g/dl (13.5-17.5); LYMPH # 0.6 10^3/uL (1.5-5.0); LYMPH % 5.8 % (24.0-44.0); MEAN CORPUSCULAR HEMOGLOBIN 28.5 pg (27.0-33.0); MEAN CORPUSCULAR HGB CONC 33.6 g/dl (32.0-36.5); MEAN CORPUSCULAR VOLUME 84.8 fl (80.0-96.0); MONO # 1.2 10^3/uL (0.0-0.8); MONO % 12.3 % (2.0-8.0); NEUTROPHILS # 7.9 10^3/uL (1.5-8.5); NEUTROPHILS % 81.3 % (36.0-66.0); PLATELET COUNT, AUTOMATED 161 10^3/uL (150-450); RED BLOOD COUNT 4.35 10^6/uL (4.30-6.10); WHITE BLOOD COUNT 9.8 10^3/uL (4.0-10.0)
[2023-01-13] MEDS ORDERED: cefTRIAXone SOD 2 GM in D5W MINI-BAG PLUS 50 ML IV ONE (09:05)
[2023-01-13] MEDS ORDERED: NS 1,900 ML in IV 1 EA IV ONE (09:05)
[2023-01-13 09:25] LABS: APPEARANCE, URINE HAZY (CLEAR); BACTERIA, URINE AUTO 1+ (NEGATIVE); BILIRUBIN, URINE AUTO NEGATIVE (NEGATIVE); BLOOD, URINE BLOOD 2+ (NEGATIVE); COLOR, URINE YELLOW (YELLOW); GLUCOSE, URINE (UA) AUTO NEGATIVE (NEGATIVE); KETONE, URINE AUTO 1+ mg/dL (NEGATIVE); LEUKOCYTE ESTERASE, URINE AUTO 3+ (NEGATIVE); MUCUS, URINE SMALL (NEGATIVE); NITRITE, URINE AUTO NEGATIVE (NEGATIVE); PROTEIN, URINE AUTO 1+ mg/dL (NEGATIVE); RBC, URINE AUTO 9 /HPF (0-3); SPECIFIC GRAVITY URINE AUTO 1.018 (1.002-1.035); SQUAMOUS EPITHELIAL CELL UR AU 0 /HPF (0-6); UROBILINOGEN, URINE AUTO 0.2 mg/dL (0.0-2.0); WBC, URINE AUTO 110 /HPF (0-3)
[2023-01-13 09:31] LABS: INR 0.93; PARTIAL THROMBOPLASTIN TIME 25.2 SECONDS (24.8-34.2); PROTHROMBIN TIME 12.7 SECONDS (12.5-14.5)
[2023-01-13 09:33] LABS: AMYLASE 57 U/L (30-118)
[2023-01-13 09:34] LABS: ALKALINE PHOSPHATASE 55 U/L (46-116); ALT/SGPT 17 U/L (7.0-40); AST/SGOT 15 U/L (<34); BILIRUBIN,DIRECT 0.1 MG/DL (<0.4); BILIRUBIN,TOTAL 0.4 MG/DL (0.3-1.2); BLOOD UREA NITROGEN 26 MG/DL (9-23); CALCIUM LEVEL 8.6 MG/DL (8.3-10.6); CARBON DIOXIDE LEVEL 28 MMOL/L (20-31); CHLORIDE LEVEL 101 MMOL/L (98-107); CREATININE FOR GFR 0.68 MG/DL (0.70-1.30); GLOMERULAR FILTRATION RATE > 60.0 (>49); GLUCOSE, FASTING 197 MG/DL (74-106); POTASSIUM SERUM 3.5 MMOL/L (3.5-5.1); SODIUM LEVEL 137 MMOL/L (136-145); TOTAL PROTEIN 5.8 G/DL (5.7-8.2)
[2023-01-13] MEDS ORDERED: TRIPOIN9 TOP (10:37)
[2023-01-13] MEDS ORDERED: CVS13CRE TOP (10:37)
[2023-01-13] MEDS ORDERED: [UNRECOGNIZED DRUG - CODE] PO (10:37)
[2023-01-13] MEDS ORDERED: ACET1TAB55 PO (10:37)
[2023-01-13] MEDS ORDERED: METF-839 PO (10:37)
[2023-01-13] MEDS ORDERED: DEBR6.5S4 AU (10:37)
[2023-01-13] MEDS ORDERED: METF500T13 PO (10:37)
[2023-01-13] MEDS ORDERED: DIVA500T94 PO (10:37)
[2023-01-13] MEDS ORDERED: HOME MED LIST COMPLETE! XX SCH (10:40)
[2023-01-13] MEDS ORDERED: ZITHTAB PO (11:27)
[2023-01-13] MEDS ORDERED: AMOX875T2 PO (11:27)
[2023-01-13 11:39] VITALS: BP 104/61; TEMP 98.4; O2SAT 96
== END 2023-01-13 11:40 | disposition home or self-care (01) ==
LOC: M ED 08:06
DX: J18.9 Pneumonia, unspecified organism (principal); E11.9 Type 2 diabetes mellitus without complications; I10 Essential (primary) hypertension; E78.5 Hyperlipidemia, unspecified; F31.9 Bipolar disorder, unspecified; F79 Unspecified intellectual disabilities; Z79.899 Other long term (current) drug therapy; Z88.8 Allergy status to other drugs, medicaments and biological substances
CPT/HCPCS: 71045; 80048; 80076; 81001; 82150; 82803; 83605; 85025; 85610; 85730; 86140; 86850; 86900; 86901; 87040; 87088; 87186; 87486; 87581; 87633; 87798; 93005; 93041; 94760; 96365; 96366; 99285; J0696

== ENCOUNTER → 2023-04-11 | Outpatient (REF) | payer MEDICARE, MEDICAID ==
[~2023-04-11] MED LIST changes: +ACET1TAB55 PO; +AMOX875T2 PO; +CVS13CRE TOP; +DEBR6.5S4 AU; +DIVA500T94 PO; +METF-839 PO; +METF500T13 PO; +MIRT-84 PO; -REME15TA2 PO; +TRIPOIN9 TOP; +ZITHTAB PO; +[UNRECOGNIZED DRUG - CODE] PO
== END ==
LOC: M LAB REF 11:44 → EEVIPCON 11:44
PROVIDERS: ATTEND Podiatrist
DX: L03.032 Cellulitis of left toe (principal)

== ENCOUNTER → 2023-05-16 | Outpatient (CLI) | payer MEDICARE, MEDICAID ==
[~2023-05-16] MED LIST changes: +GLIP5TAB17 PO; -GLIP5TAB8 PO
== END ==
LOC: M SOG 07:58
PROVIDERS: ATTEND Physician Assistant
DX: S62.211D Bennett's fracture, right hand, subsequent encounter for fracture with routine healing (principal)

== ENCOUNTER → 2023-06-13 | Outpatient (CLI) | payer MEDICARE, MEDICAID ==
[~2023-06-13] MED LIST changes: +BACT800T5 PO
== END ==
LOC: M SOG 07:49
PROVIDERS: ATTEND Physician Assistant
DX: S62.211D Bennett's fracture, right hand, subsequent encounter for fracture with routine healing (principal)

== ENCOUNTER 2023-06-15 07:43 | Emergency (ER) | payer MEDICARE, MEDICAID ==
[~2023-06-15 07:43] MED LIST changes: -BACT800T5 PO
[2023-06-15 12:38] LABS: BASO % 0.2 % (0.0-1.0); HEMATOCRIT 33.7 % (42.0-52.0); HEMOGLOBIN 11.5 g/dl (13.5-17.5); LYMPH # 0.8 10^3/uL (1.5-5.0); LYMPH % 7.5 % (24.0-44.0); MEAN CORPUSCULAR HEMOGLOBIN 29.8 pg (27.0-33.0); MEAN CORPUSCULAR HGB CONC 34.1 g/dl (32.0-36.5); MEAN CORPUSCULAR VOLUME 87.3 fl (80.0-96.0); MONO # 1.2 10^3/uL (0.0-0.8); MONO % 11.5 % (2.0-8.0); NEUTROPHILS # 8.6 10^3/uL (1.5-8.5); NEUTROPHILS % 80.1 % (36.0-66.0); PLATELET COUNT, AUTOMATED 154 10^3/uL (150-450); RED BLOOD COUNT 3.86 10^6/uL (4.30-6.10); WHITE BLOOD COUNT 10.8 10^3/uL (4.0-10.0)
[2023-06-15 13:04] LABS: CPK CREATINE PHOSPHOKINASE 47 U/L (46-171)
[2023-06-15 13:05] LABS: ALBUMIN 2.7 G/DL (3.2-5.2); ALKALINE PHOSPHATASE 56 U/L (46-116); ALT/SGPT 9 U/L (7.0-40); AST/SGOT 9 U/L (<34); BILIRUBIN,TOTAL 0.6 MG/DL (0.3-1.2); BLOOD UREA NITROGEN 12 MG/DL (9-23); CALCIUM LEVEL 8.5 MG/DL (8.3-10.6); CARBON DIOXIDE LEVEL 30 MMOL/L (20-31); CHLORIDE LEVEL 96 MMOL/L (98-107); CK-MB VALUE MASS < 1.0 NG/ML (<3.6); GLOMERULAR FILTRATION RATE > 60.0 (>49); GLUCOSE, FASTING 140 MG/DL (74-106); MB/CK RELATIVE INDEX 2.12 (< OR =4); POTASSIUM SERUM 3.7 MMOL/L (3.5-5.1); SODIUM LEVEL 132 MMOL/L (136-145); TOTAL PROTEIN 5.9 G/DL (5.7-8.2)
[2023-06-15] MEDS ORDERED: NS 1,000 ML IV ONE (13:25)
[2023-06-15] MEDS ORDERED: cefTRIAXone SOD 1 GM in D5W MINI-BAG PLUS 50 ML IV ONE (13:25)
[2023-06-15] MEDS ORDERED: BACT800T5 PO (14:18)
[2023-06-15 14:44] VITALS: BP 144/73; TEMP 98.4; O2SAT 97
== END 2023-06-15 14:51 | disposition home or self-care (01) ==
LOC: M ED 07:43
DX: N30.00 Acute cystitis without hematuria (principal); E87.1 Hypo-osmolality and hyponatremia; R53.1 Weakness; E11.9 Type 2 diabetes mellitus without complications; I10 Essential (primary) hypertension; E78.5 Hyperlipidemia, unspecified; K21.9 Gastro-esophageal reflux disease without esophagitis; F31.9 Bipolar disorder, unspecified; Z79.2 Long term (current) use of antibiotics; Z79.02 Long term (current) use of antithrombotics/antiplatelets; Z79.811 Long term (current) use of aromatase inhibitors; Z79.4 Long term (current) use of insulin; Z79.899 Other long term (current) drug therapy
CPT/HCPCS: 70450; 71046; 80053; 81001; 82550; 82553; 83605; 84484; 85025; 87088; 87186; 96365; 99284; J0696

== ENCOUNTER → 2023-06-27 | Outpatient (CLI) | payer MEDICARE, MEDICAID ==
[~2023-06-27] MED LIST changes: +BACT800T5 PO
== END ==
LOC: M SOG 13:17
PROVIDERS: ATTEND Physician Assistant
DX: S62.211D Bennett's fracture, right hand, subsequent encounter for fracture with routine healing (principal)

== ENCOUNTER 2023-06-29 07:24 | Emergency (ER) | payer MEDICARE, MEDICAID ==
[~2023-06-29] VITALS: Ht 175.3 cm; Wt 65.9 kg
[2023-06-29 09:54] VITALS: BP 108/79; TEMP 97.2; O2SAT 96
== END 2023-06-29 10:05 | disposition home or self-care (01) ==
LOC: EDBD 07:24 → M ED 07:24
DX: L02.31 Cutaneous abscess of buttock (principal); Z88.8 Allergy status to other drugs, medicaments and biological substances; Z79.899 Other long term (current) drug therapy; Z79.1 Long term (current) use of non-steroidal anti-inflammatories (NSAID); Z79.84 Long term (current) use of oral hypoglycemic drugs
CPT/HCPCS: 99284; G0463

== ENCOUNTER → 2023-07-22 | Outpatient (CLI) | payer MEDICARE, MEDICAID ==
[~2023-07-22] MED LIST changes: +KETO2SHA8 TOP
[2023-07-22 13:44] LABS: HEMOGLOBIN A1c 5.8 % (4.0-6.0)
[2023-07-22 13:45] LABS: BLOOD UREA NITROGEN 15 MG/DL (9-23); CALCIUM LEVEL 9.5 MG/DL (8.3-10.6); CARBON DIOXIDE LEVEL 32 MMOL/L (20-31); CHLORIDE LEVEL 97 MMOL/L (98-107); CREATININE FOR GFR 0.52 MG/DL (0.70-1.30); GLOMERULAR FILTRATION RATE > 60.0 (>49); GLUCOSE, FASTING 132 MG/DL (74-106); POTASSIUM SERUM 4.2 MMOL/L (3.5-5.1); SODIUM LEVEL 136 MMOL/L (136-145)
== END ==
LOC: M WUC 08:49
PROVIDERS: ATTEND Internal Medicine Endocrinology, Diabetes & Metabolism
DX: E11.65 Type 2 diabetes mellitus with hyperglycemia (principal)

== ENCOUNTER 2023-07-26 08:15 | Inpatient (IN) | payer MEDICARE, MEDICAID ==
[~2023-07-26 08:15] MED LIST changes: -KETO2SHA8 TOP
[2023-07-26 09:30] LABS: BASO % 0.1 % (0.0-1.0); EOS % 0.1 % (0.0-3.0); HEMATOCRIT 35.6 % (42.0-52.0); LYMPH # 0.6 10^3/uL (1.5-5.0); LYMPH % 7.3 % (24.0-44.0); MEAN CORPUSCULAR HEMOGLOBIN 29.7 pg (27.0-33.0); MEAN CORPUSCULAR HGB CONC 33.7 g/dl (32.0-36.5); MEAN CORPUSCULAR VOLUME 88.1 fl (80.0-96.0); MONO # 0.8 10^3/uL (0.0-0.8); MONO % 9.5 % (2.0-8.0); NEUTROPHILS % 82.4 % (36.0-66.0); PLATELET COUNT, AUTOMATED 168 10^3/uL (150-450); RED BLOOD COUNT 4.04 10^6/uL (4.30-6.10); WHITE BLOOD COUNT 8.5 10^3/uL (4.0-10.0)
[2023-07-26 09:43] LABS: BLOOD UREA NITROGEN 13 MG/DL (9-23); CALCIUM LEVEL 8.1 MG/DL (8.3-10.6); CARBON DIOXIDE LEVEL 29 MMOL/L (20-31); CHLORIDE LEVEL 100 MMOL/L (98-107); CREATININE FOR GFR 0.48 MG/DL (0.70-1.30); GLOMERULAR FILTRATION RATE > 60.0 (>49); GLUCOSE, FASTING 138 MG/DL (74-106); POTASSIUM SERUM 3.6 MMOL/L (3.5-5.1); SODIUM LEVEL 136 MMOL/L (136-145)
[2023-07-26] MEDS ORDERED: ACETAMINOPHEN TAB 650MG DOSE (2X325MG) PO ONE (09:50)
[2023-07-26 10:08] LABS: LIPASE 28 U/L (12-53)
[2023-07-26 10:10] LABS: ALKALINE PHOSPHATASE 49 U/L (46-116); ALT/SGPT 13 U/L (7.0-40); AST/SGOT 18 U/L (<34); BILIRUBIN,DIRECT 0.1 MG/DL (<0.4); BILIRUBIN,TOTAL 0.4 MG/DL (0.3-1.2); TOTAL PROTEIN 5.9 G/DL (5.7-8.2)
[2023-07-26] MEDS ORDERED: cefTRIAXone SOD 2 GM in D5W MINI-BAG PLUS 50 ML IV ONE (11:45)
[2023-07-26] MEDS ORDERED: AZITHROMYCIN INJ 500 MG, VIAL MATE ADAPTER 1 EACH in NS 250 ML IV ONE (11:45)
[2023-07-26] MEDS ORDERED: IBUPROFEN 600MG TAB PO ONE (12:20)
[2023-07-26] MEDS ORDERED: MED REC IN PROGRESS XX SCH (12:40)
[2023-07-26] MEDS ORDERED: ACETAMINOPHEN TAB 650MG DOSE (2X325MG) PO PRN (12:45)
[2023-07-26] MEDS ORDERED: MOM 30ML SUSPENSION UDC PO PRN (12:45)
[2023-07-26] MEDS ORDERED: MAALOX 30 ML SUSP *UDC PO PRN (12:45)
[2023-07-26] MEDS ORDERED: KETO2SHA8 TOP (12:59)
[2023-07-26] MEDS ORDERED: HOME MED LIST COMPLETE! XX SCH (13:05)
[2023-07-26 14:10] VITALS: BP 102/56; TEMP 99; O2SAT 100
[2023-07-26] MEDS ORDERED: GLUCOSE 4GM CHEW TABLET PO PRN (14:40)
[2023-07-26] MEDS ORDERED: DEXTROSE 50% 50ML SYRINGE IV PRN (14:40)
[2023-07-26] MEDS ORDERED: GLUCAGON INJ 1MG VIAL SC PRN (14:40)
[2023-07-26 14:48] VITALS: O2SAT 96
[2023-07-26 15:15] LABS: C REACTIVE PROTEIN QUANTITATIV 7.3 MG/DL (<1.0)
[2023-07-26 15:22] LABS: PROCALCITONIN 13.72 ng/ml
[2023-07-26 15:27] VITALS: O2SAT 94
[2023-07-26] MEDS: FLUoxetine 20MG CAP PO SCH (15:47)
[2023-07-26] MEDS: LORazepam 1 MG TAB PO SCH (15:47)
[2023-07-26] MEDS: risperiDONE 0.5 MG TAB PO SCH ×2 (15:47→19:25)
[2023-07-26] MEDS: busPIRone 10 MG TAB PO SCH ×2 (15:47→19:25)
[2023-07-26] MEDS: PANTOPRAZOLE 40MG TAB (PROTONIX) PO SCH (15:47)
[2023-07-26] MEDS: FERROUS GLUCONATE 324 MG TAB PO SCH ×2 (15:47→19:25)
[2023-07-26] MEDS: KETOCONAZOLE 2% CREAM TOP SCH (15:49)
[2023-07-26] MEDS: SUCRALFATE 1 GM TAB PO SCH (17:37)
[2023-07-26] MEDS: INSULIN LISPRO (NovoLOG) PER UNIT SC SCH ×2 (17:37→19:20)
[2023-07-26] MEDS: MAGNESIUM OXIDE 400MG TAB (MAG-OX) PO SCH (19:25)
[2023-07-26] MEDS: QUEtiapine FUMARATE 25 MG TAB PO SCH (19:25)
[2023-07-26] MEDS: DIVALPROEX 500 MG TAB PO SCH (19:25)
[2023-07-26] MEDS: ATORVASTATIN 10 MG TAB PO SCH (19:25)
[2023-07-26 20:00] VITALS: BP 100/55; TEMP 98.8; O2SAT 95
[2023-07-26] MEDS ORDERED: TAMSULOSIN 0.4 MG CAP PO SCH (21:00)
[2023-07-27] MEDS: LORazepam 1 MG TAB PO SCH ×3 (05:47→17:21)
[2023-07-27 06:00] VITALS: BP 99/55; TEMP 98.2; O2SAT 94
[2023-07-27] MEDS: INSULIN LISPRO (NovoLOG) PER UNIT SC SCH ×4 (07:29→20:32)
[2023-07-27] MEDS: MIRALAX *UNIT DOSE* 17GM PACKET PO SCH (09:04)
[2023-07-27] MEDS: AZITHROMYCIN 250MG TABLET PO SCH (09:04)
[2023-07-27] MEDS: PANTOPRAZOLE 40MG TAB (PROTONIX) PO SCH (09:04)
[2023-07-27] MEDS: SUCRALFATE 1 GM TAB PO SCH ×3 (09:05→17:21)
[2023-07-27] MEDS: busPIRone 10 MG TAB PO SCH ×3 (09:05→20:32)
[2023-07-27] MEDS: ENOXAPARIN 40MG/0.4ML SYRINGE (J1650 PER 10MG) SC SCH (09:05)
[2023-07-27] MEDS: FLUoxetine 20MG CAP PO SCH (09:05)
[2023-07-27] MEDS: DIVALPROEX 500 MG TAB PO SCH ×2 (09:05→20:32)
[2023-07-27] MEDS: risperiDONE 0.5 MG TAB PO SCH ×2 (09:05→20:32)
[2023-07-27] MEDS: KETOCONAZOLE 2% CREAM TOP SCH (09:06)
[2023-07-27] MEDS: cefTRIAXone SOD 2 GM in D5W MINI-BAG PLUS 50 ML IV SCH (12:39)
[2023-07-27] MEDS: FERROUS GLUCONATE 324 MG TAB PO SCH ×2 (12:39→20:32)
[2023-07-27 14:00] VITALS: BP 105/67; TEMP 98.4; O2SAT 93
[2023-07-27] MEDS: MAGNESIUM OXIDE 400MG TAB (MAG-OX) PO SCH (20:31)
[2023-07-27] MEDS: QUEtiapine FUMARATE 25 MG TAB PO SCH (20:31)
[2023-07-27] MEDS: ATORVASTATIN 10 MG TAB PO SCH (20:32)
[2023-07-27 22:00] VITALS: BP 109/66; TEMP 98.1; O2SAT 94
[2023-07-28 01:31] VITALS: O2SAT 90
[2023-07-28 06:08] VITALS: BP 113/66; TEMP 97.9; O2SAT 91
[2023-07-28 06:19] LABS: BASO % 0.2 % (0.0-1.0); EOS % 0.4 % (0.0-3.0); HEMATOCRIT 33.1 % (42.0-52.0); HEMOGLOBIN 11.3 g/dl (13.5-17.5); LYMPH # 1.7 10^3/uL (1.5-5.0); LYMPH % 15.8 % (24.0-44.0); MEAN CORPUSCULAR HEMOGLOBIN 30.3 pg (27.0-33.0); MEAN CORPUSCULAR HGB CONC 34.1 g/dl (32.0-36.5); MEAN CORPUSCULAR VOLUME 88.7 fl (80.0-96.0); MONO # 0.7 10^3/uL (0.0-0.8); MONO % 6.8 % (2.0-8.0); NEUTROPHILS % 76.3 % (36.0-66.0); PLATELET COUNT, AUTOMATED 148 10^3/uL (150-450); RED BLOOD COUNT 3.73 10^6/uL (4.30-6.10); WHITE BLOOD COUNT 10.5 10^3/uL (4.0-10.0)
[2023-07-28 06:43] LABS: BLOOD UREA NITROGEN 10 MG/DL (9-23); CALCIUM LEVEL 8.2 MG/DL (8.3-10.6); CARBON DIOXIDE LEVEL 30 MMOL/L (20-31); CHLORIDE LEVEL 103 MMOL/L (98-107); CREATININE FOR GFR 0.48 MG/DL (0.70-1.30); GLOMERULAR FILTRATION RATE > 60.0 (>49); GLUCOSE, FASTING 144 MG/DL (74-106); MAGNESIUM LEVEL 1.8 MG/DL (1.8-2.4); POTASSIUM SERUM 3.5 MMOL/L (3.5-5.1); SODIUM LEVEL 140 MMOL/L (136-145)
[2023-07-28] MEDS: LORazepam 1 MG TAB PO SCH ×3 (07:07→16:51)
[2023-07-28] MEDS: INSULIN LISPRO (NovoLOG) PER UNIT SC SCH ×4 (07:51→20:34)
[2023-07-28] MEDS: KETOCONAZOLE 2% CREAM TOP SCH (07:51)
[2023-07-28] MEDS: PANTOPRAZOLE 40MG TAB (PROTONIX) PO SCH (07:52)
[2023-07-28] MEDS: FLUoxetine 20MG CAP PO SCH (07:52)
[2023-07-28] MEDS: AZITHROMYCIN 250MG TABLET PO SCH (07:52)
[2023-07-28] MEDS: DIVALPROEX 500 MG TAB PO SCH ×2 (07:52→20:46)
[2023-07-28] MEDS: busPIRone 10 MG TAB PO SCH ×3 (07:52→20:46)
[2023-07-28] MEDS: risperiDONE 0.5 MG TAB PO SCH ×2 (07:52→20:46)
[2023-07-28] MEDS: SUCRALFATE 1 GM TAB PO SCH ×3 (07:52→16:50)
[2023-07-28] MEDS: ENOXAPARIN 40MG/0.4ML SYRINGE (J1650 PER 10MG) SC SCH (07:52)
[2023-07-28] MEDS: FERROUS GLUCONATE 324 MG TAB PO SCH ×2 (12:13→20:46)
[2023-07-28] MEDS: cefTRIAXone SOD 2 GM in D5W MINI-BAG PLUS 50 ML IV SCH (12:13)
[2023-07-28 14:00] VITALS: BP 110/62; TEMP 97.9; O2SAT 97
[2023-07-28 19:50] VITALS: BP 136/72; TEMP 98.6; O2SAT 95
[2023-07-28] MEDS: ATORVASTATIN 10 MG TAB PO SCH (20:45)
[2023-07-28] MEDS: DOXYCYCLINE HYCLATE 100MG TABLET PO SCH (20:46)
[2023-07-28] MEDS: MAGNESIUM OXIDE 400MG TAB (MAG-OX) PO SCH (20:46)
[2023-07-28] MEDS: QUEtiapine FUMARATE 25 MG TAB PO SCH (20:46)
[2023-07-29 05:09] VITALS: BP 148/79; TEMP 99.5; O2SAT 95
[2023-07-29 06:30] LABS: BASO % 0.3 % (0.0-1.0); EOS # 0.1 10^3/uL (0.0-0.5); EOS % 1.3 % (0.0-3.0); HEMATOCRIT 33.4 % (42.0-52.0); HEMOGLOBIN 11.2 g/dl (13.5-17.5); LYMPH # 1.8 10^3/uL (1.5-5.0); LYMPH % 25.4 % (24.0-44.0); MEAN CORPUSCULAR HEMOGLOBIN 29.9 pg (27.0-33.0); MEAN CORPUSCULAR HGB CONC 33.5 g/dl (32.0-36.5); MEAN CORPUSCULAR VOLUME 89.1 fl (80.0-96.0); MONO # 0.5 10^3/uL (0.0-0.8); MONO % 7.4 % (2.0-8.0); NEUTROPHILS # 4.7 10^3/uL (1.5-8.5); PLATELET COUNT, AUTOMATED 165 10^3/uL (150-450); RED BLOOD COUNT 3.75 10^6/uL (4.30-6.10); WHITE BLOOD COUNT 7.2 10^3/uL (4.0-10.0)
[2023-07-29] MEDS: LORazepam 1 MG TAB PO SCH ×2 (06:46→13:22)
[2023-07-29 06:52] LABS: BLOOD UREA NITROGEN 10 MG/DL (9-23); CALCIUM LEVEL 8.2 MG/DL (8.3-10.6); CARBON DIOXIDE LEVEL 28 MMOL/L (20-31); CHLORIDE LEVEL 105 MMOL/L (98-107); CREATININE FOR GFR 0.47 MG/DL (0.70-1.30); GLOMERULAR FILTRATION RATE > 60.0 (>49); GLUCOSE, FASTING 175 MG/DL (74-106); MAGNESIUM LEVEL 1.7 MG/DL (1.8-2.4); POTASSIUM SERUM 3.5 MMOL/L (3.5-5.1); SODIUM LEVEL 139 MMOL/L (136-145)
[2023-07-29] MEDS: INSULIN LISPRO (NovoLOG) PER UNIT SC SCH ×2 (08:29→13:22)
[2023-07-29] MEDS: ENOXAPARIN 40MG/0.4ML SYRINGE (J1650 PER 10MG) SC SCH (08:29)
[2023-07-29] MEDS: FLUoxetine 20MG CAP PO SCH (08:29)
[2023-07-29] MEDS: SUCRALFATE 1 GM TAB PO SCH ×2 (08:29→13:22)
[2023-07-29] MEDS: DOXYCYCLINE HYCLATE 100MG TABLET PO SCH (08:30)
[2023-07-29] MEDS: risperiDONE 0.5 MG TAB PO SCH (08:30)
[2023-07-29] MEDS: PANTOPRAZOLE 40MG TAB (PROTONIX) PO SCH (08:30)
[2023-07-29] MEDS: DIVALPROEX 500 MG TAB PO SCH (08:30)
[2023-07-29] MEDS: KETOCONAZOLE 2% CREAM TOP SCH (08:31)
[2023-07-29] MEDS: MIRALAX *UNIT DOSE* 17GM PACKET PO SCH (08:31)
[2023-07-29] MEDS: busPIRone 10 MG TAB PO SCH (08:32)
[2023-07-29] MEDS ORDERED: DOXY100T PO (11:15)
[2023-07-29] MEDS: FERROUS GLUCONATE 324 MG TAB PO SCH (13:22)
[2023-07-29] MEDS: cefTRIAXone SOD 2 GM in D5W MINI-BAG PLUS 50 ML IV SCH (13:22)
[2023-07-29 15:08] LABS: MYCOPLASMA PNEUMONIAE IgG 208 U/mL (0-99); MYCOPLASMA PNEUMONIAE IgM <770 U/mL (0-769)
[2023-08-03 15:10] LABS: BODY FLUID CULTURE Not indicated. (.); LEGIONELLA ANTIGEN URINE Negative (Negative); ORGANISM ID Not indicated. (.); SPECIMEN SOURCE Urine (.); URINE STREP PNEUMONIAE ANTIGEN Negative (Negative)
== END 2023-07-29 13:27 | disposition home or self-care (01) | DRG 698 ==
LOC: M ED 08:15 → M ED INP 12:45 → ENRESERV 13:33 → M MSPAV 14:09
PROVIDERS: ADMIT Student in an Organized Health Care Education/Training Program; ATTEND Internal Medicine
DX: T83.511A Infection and inflammatory reaction due to indwelling urethral catheter, initial encounter (principal); J18.9 Pneumonia, unspecified organism; E11.9 Type 2 diabetes mellitus without complications; N39.0 Urinary tract infection, site not specified; F31.9 Bipolar disorder, unspecified; I10 Essential (primary) hypertension; E78.5 Hyperlipidemia, unspecified; K21.9 Gastro-esophageal reflux disease without esophagitis; F79 Unspecified intellectual disabilities; M81.0 Age-related osteoporosis without current pathological fracture; Z90.49 Acquired absence of other specified parts of digestive tract; Z79.84 Long term (current) use of oral hypoglycemic drugs; Z79.899 Other long term (current) drug therapy; Z88.8 Allergy status to other drugs, medicaments and biological substances; Z20.822 Contact with and (suspected) exposure to COVID-19

== ENCOUNTER → 2023-08-16 | Outpatient (CLI) | payer MEDICARE, MEDICAID ==
[~2023-08-16] MED LIST changes: +DOXY100T PO; +KETO2SHA8 TOP
== END ==
LOC: M SOG 07:54
PROVIDERS: ATTEND Physician Assistant
DX: S62.211D Bennett's fracture, right hand, subsequent encounter for fracture with routine healing (principal); Y99.8 Other external cause status

== ENCOUNTER → 2023-08-18 | Outpatient (REF) | payer MEDICARE, MEDICAID ==
[~2023-08-18] MED LIST changes: +RISP-105; -RISP-8
== END ==
LOC: M LAB REF 12:22
PROVIDERS: ATTEND Family Medicine
DX: E11.9 Type 2 diabetes mellitus without complications (principal)

== ENCOUNTER 2023-09-03 07:10 | Emergency (ER) | payer MEDICARE, MEDICAID ==
[~2023-09-03] VITALS: Ht 170.2 cm; Wt 54.5 kg
[2023-09-03 07:21] VITALS: TEMP 96.7
[2023-09-03 07:30] VITALS: BP 136/75; O2SAT 97
[2023-09-03] MEDS ORDERED: LIDOCAINE 2% 5ML JELLY UROJET TOP ONE (07:40)
== END 2023-09-03 08:12 | disposition home or self-care (01) ==
LOC: M ED 07:10
DX: T83.098A Other mechanical complication of other urinary catheter, initial encounter (principal); I10 Essential (primary) hypertension; E78.5 Hyperlipidemia, unspecified; N40.0 Benign prostatic hyperplasia without lower urinary tract symptoms; Z88.8 Allergy status to other drugs, medicaments and biological substances; Z79.02 Long term (current) use of antithrombotics/antiplatelets; Z79.811 Long term (current) use of aromatase inhibitors; Z79.4 Long term (current) use of insulin; Z79.899 Other long term (current) drug therapy

== ENCOUNTER → 2023-12-15 | Outpatient (CLI) | payer MEDICARE, MEDICAID ==
[~2023-12-15] MED LIST changes: -RISP-7 PO; +RISP0.5T82 PO
[2023-12-15 12:50] LABS: BASO % 0.6 % (0.0-1.0); EOS # 0.1 10^3/uL (0.0-0.5); HEMATOCRIT 40.3 % (42.0-52.0); HEMOGLOBIN 13.2 g/dl (13.5-17.5); LYMPH # 1.7 10^3/uL (1.5-5.0); LYMPH % 22.7 % (24.0-44.0); MEAN CORPUSCULAR HEMOGLOBIN 29.7 pg (27.0-33.0); MEAN CORPUSCULAR HGB CONC 32.8 g/dl (32.0-36.5); MEAN CORPUSCULAR VOLUME 90.8 fl (80.0-96.0); MONO # 0.7 10^3/uL (0.0-0.8); MONO % 10.1 % (2.0-8.0); NEUTROPHILS # 4.7 10^3/uL (1.5-8.5); NEUTROPHILS % 65.2 % (36.0-66.0); PLATELET COUNT, AUTOMATED 165 10^3/uL (150-450); RED BLOOD COUNT 4.44 10^6/uL (4.30-6.10); WHITE BLOOD COUNT 7.3 10^3/uL (4.0-10.0)
[2023-12-15 13:19] LABS: ALBUMIN 3.4 G/DL (3.2-5.2); ALKALINE PHOSPHATASE 48 U/L (46-116); ALT/SGPT 14 U/L (7.0-40); AST/SGOT 9 U/L (<34); BILIRUBIN,TOTAL 0.4 MG/DL (0.3-1.2); BLOOD UREA NITROGEN 14 MG/DL (9-23); CALCIUM LEVEL 9.2 MG/DL (8.3-10.6); CARBON DIOXIDE LEVEL 32 MMOL/L (20-31); CHLORIDE LEVEL 101 MMOL/L (98-107); CHOLESTEROL LEVEL 170 MG/DL (<200); CHOLESTEROL RISK RATIO 2.55 (<5); CREATININE FOR GFR 0.65 MG/DL (0.70-1.30); GLOMERULAR FILTRATION RATE > 60.0 (>49); GLUCOSE, FASTING 116 MG/DL (74-106); HDL CHOLESTEROL 66.6 MG/DL (>40); LDL CHOLESTEROL 88.4 MG/DL (<100); NON-HDL-C 103.4 MG/DL; POTASSIUM SERUM 4.4 MMOL/L (3.5-5.1); SODIUM LEVEL 140 MMOL/L (136-145); TOTAL PROTEIN 6.4 G/DL (5.7-8.2); TRIGLYCERIDES LEVEL 75 MG/DL (<150)
[2023-12-15 13:23] LABS: PROLACTIN 9.85 NG/ML (2.1-17.7)
[2023-12-15 14:42] LABS: HEMOGLOBIN A1c 5.9 % (4.0-6.0)
== END ==
LOC: M WUC 08:09
PROVIDERS: ATTEND Physician Assistant
DX: Z79.899 Other long term (current) drug therapy (principal)

== ENCOUNTER 2024-01-13 09:45 | Inpatient (IN) | payer MEDICARE, MEDICAID ==
[~2024-01-13] VITALS: Ht 170.2 cm; Wt 67.1 kg
[2024-01-13 10:47] LABS: BASO % 0.3 % (0.0-1.0); EOS % 0.2 % (0.0-3.0); HEMATOCRIT 35.8 % (42.0-52.0); HEMOGLOBIN 12.3 g/dl (13.5-17.5); LYMPH % 8.9 % (24.0-44.0); MEAN CORPUSCULAR HEMOGLOBIN 30.9 pg (27.0-33.0); MEAN CORPUSCULAR HGB CONC 34.4 g/dl (32.0-36.5); MEAN CORPUSCULAR VOLUME 89.9 fl (80.0-96.0); MONO # 1.1 10^3/uL (0.0-0.8); MONO % 9.5 % (2.0-8.0); NEUTROPHILS # 9.5 10^3/uL (1.5-8.5); NEUTROPHILS % 80.8 % (36.0-66.0); PLATELET COUNT, AUTOMATED 156 10^3/uL (150-450); RED BLOOD COUNT 3.98 10^6/uL (4.30-6.10); WHITE BLOOD COUNT 11.8 10^3/uL (4.0-10.0)
[2024-01-13 11:02] LABS: ALBUMIN 2.9 G/DL (3.2-5.2); ALKALINE PHOSPHATASE 46 U/L (46-116); ALT/SGPT 18 U/L (7.0-40); AST/SGOT 11 U/L (<34); BILIRUBIN,DIRECT 0.1 MG/DL (<0.4); BILIRUBIN,TOTAL 0.3 MG/DL (0.3-1.2); BLOOD UREA NITROGEN 24 MG/DL (9-23); CALCIUM LEVEL 8.9 MG/DL (8.3-10.6); CARBON DIOXIDE LEVEL 26 MMOL/L (20-31); CHLORIDE LEVEL 98 MMOL/L (98-107); CREATININE FOR GFR 0.56 MG/DL (0.70-1.30); GLOMERULAR FILTRATION RATE > 60.0 (>49); GLUCOSE, FASTING 209 MG/DL (74-106); POTASSIUM SERUM 3.9 MMOL/L (3.5-5.1); SODIUM LEVEL 135 MMOL/L (136-145); TOTAL PROTEIN 5.6 G/DL (5.7-8.2)
[2024-01-13 11:04] LABS: THYROID STIMULATING HORMONE 0.943 uIU/ML (0.55-4.78)
[2024-01-13] MEDS: NS 1,000 ML in IV 1 EA IV ONE (11:29)
[2024-01-13] MEDS ORDERED: RISP0.5T82 PO (11:51)
[2024-01-13] MEDS ORDERED: GUAI100S51 PO (11:51)
[2024-01-13] MEDS ORDERED: POLY17PO18 PO (11:51)
[2024-01-13] MEDS ORDERED: [UNRECOGNIZED DRUG - CODE] PO (11:51)
[2024-01-13] MEDS ORDERED: HOME MED LIST COMPLETE! XX SCH (11:55)
[2024-01-13] MEDS: AZITHROMYCIN 250MG TABLET PO ONE (12:29)
[2024-01-13] MEDS: cefTRIAXone SOD 1 GM in D5W MINI-BAG PLUS 50 ML IV ONE (12:29)
[2024-01-13] MEDS ORDERED: DEXTROSE 50% 50ML SYRINGE IV PRN (13:20)
[2024-01-13] MEDS ORDERED: GLUCAGON INJ 1MG VIAL SC PRN (13:20)
[2024-01-13] MEDS ORDERED: ACETAMINOPHEN TAB 650MG DOSE (2X325MG) PO PRN (13:20)
[2024-01-13] MEDS ORDERED: MOM 30ML SUSPENSION UDC PO PRN (13:20)
[2024-01-13] MEDS ORDERED: GLUCOSE 4 GM CHEW PO PRN (13:20)
[2024-01-13] MEDS ORDERED: CARBAMIDE PEROXIDE 6.5% OTIC SOLN 15ML AU PRN (14:20)
[2024-01-13] MEDS: NS 1,000 ML IV SCH (14:46)
[2024-01-13] MEDS: DOXYCYCLINE HYCLATE 100 MG in D5W MINI-BAG PLUS 100 ML IV SCH (14:47)
[2024-01-13 15:10] VITALS: BP 142/66; TEMP 97.2; O2SAT 95
[2024-01-13 15:15] LABS: PROCALCITONIN 1.09 ng/ml
[2024-01-13] MEDS: LORazepam 1 MG TAB PO SCH (17:33)
[2024-01-13] MEDS: SUCRALFATE 1 GM TAB PO SCH (17:33)
[2024-01-13] MEDS: busPIRone 10 MG TAB PO SCH (17:33)
[2024-01-13] MEDS: INSULIN LISPRO (NovoLOG) PER UNIT SC SCH ×2 (17:34→22:12)
[2024-01-13] MEDS ORDERED: NS 1,000 ML IV ONE (18:25)
[2024-01-13] MEDS: NS 1,000 ML IV ONE ×2 (18:51→22:18)
[2024-01-13 19:36] VITALS: BP 142/71; TEMP 97.5; O2SAT 97
[2024-01-13] MEDS: risperiDONE 0.5 MG TAB PO SCH (22:19)
[2024-01-13] MEDS: TAMSULOSIN 0.4 MG CAP PO SCH (22:19)
[2024-01-13] MEDS: ATORVASTATIN 10 MG TAB PO SCH (22:19)
[2024-01-13] MEDS: guaiFENesin ER TABLET 600 MG TAB PO SCH (22:19)
[2024-01-13] MEDS: QUEtiapine FUMARATE 25 MG TAB PO SCH (22:20)
[2024-01-13] MEDS: DOCUSATE SODIUM 100MG CAPSULE PO SCH (22:20)
[2024-01-13] MEDS: FERROUS GLUCONATE 324 MG TAB PO SCH (22:21)
[2024-01-13] MEDS: CEFEPIME HCL 2 GM in D5W MINI-BAG PLUS 50 ML IV SCH (23:32)
[2024-01-14 04:33] VITALS: BP 141/69; TEMP 97.5; O2SAT 97
[2024-01-14 05:47] LABS: BASO % 0.2 % (0.0-1.0); EOS # 0.1 10^3/uL (0.0-0.5); EOS % 0.7 % (0.0-3.0); HEMOGLOBIN 10.5 g/dl (13.5-17.5); LYMPH # 1.5 10^3/uL (1.5-5.0); LYMPH % 17.1 % (24.0-44.0); MEAN CORPUSCULAR HEMOGLOBIN 30.7 pg (27.0-33.0); MEAN CORPUSCULAR HGB CONC 33.9 g/dl (32.0-36.5); MEAN CORPUSCULAR VOLUME 90.6 fl (80.0-96.0); MONO # 0.7 10^3/uL (0.0-0.8); MONO % 8.3 % (2.0-8.0); NEUTROPHILS # 6.5 10^3/uL (1.5-8.5); NEUTROPHILS % 73.1 % (36.0-66.0); PLATELET COUNT, AUTOMATED 129 10^3/uL (150-450); RED BLOOD COUNT 3.42 10^6/uL (4.30-6.10); WHITE BLOOD COUNT 8.9 10^3/uL (4.0-10.0)
[2024-01-14 06:17] LABS: BLOOD UREA NITROGEN 11 MG/DL (9-23); CALCIUM LEVEL 7.9 MG/DL (8.3-10.6); CARBON DIOXIDE LEVEL 30 MMOL/L (20-31); CHLORIDE LEVEL 103 MMOL/L (98-107); GLOMERULAR FILTRATION RATE > 60.0 (>49); GLUCOSE, FASTING 166 MG/DL (74-106); MAGNESIUM LEVEL 1.4 MG/DL (1.8-2.4); POTASSIUM SERUM 3.6 MMOL/L (3.5-5.1); SODIUM LEVEL 137 MMOL/L (136-145)
[2024-01-14] MEDS: MAG SULF 1GM/100ML (MAG RUN) 1 GM in IV 1 EA IV SCH (07:41)
[2024-01-14] MEDS: DIVALPROEX 500 MG TAB PO SCH (07:42)
[2024-01-14] MEDS: RISPERIDONE 1 MG TAB PO SCH (07:42)
[2024-01-14] MEDS: PANTOPRAZOLE 40MG TAB (PROTONIX) PO SCH (07:42)
[2024-01-14] MEDS: FLUoxetine 20MG CAP PO SCH (07:43)
[2024-01-14] MEDS: ENOXAPARIN 40MG/0.4ML SYRINGE (J1650 PER 10MG) SC SCH (07:44)
[2024-01-14 12:00] VITALS: BP 127/67; TEMP 97.2; O2SAT 95
[2024-01-14] MEDS: DOXYCYCLINE HYCLATE 100MG TABLET PO SCH (15:55)
[2024-01-14 20:00] VITALS: BP 156/87; TEMP 97.7; O2SAT 95
[2024-01-15 04:00] VITALS: BP 141/70; TEMP 97.7; O2SAT 94
[2024-01-15 06:14] LABS: BASO % 0.4 % (0.0-1.0); EOS # 0.1 10^3/uL (0.0-0.5); EOS % 1.7 % (0.0-3.0); HEMATOCRIT 34.1 % (42.0-52.0); HEMOGLOBIN 11.8 g/dl (13.5-17.5); LYMPH # 1.8 10^3/uL (1.5-5.0); LYMPH % 23.4 % (24.0-44.0); MEAN CORPUSCULAR HEMOGLOBIN 30.9 pg (27.0-33.0); MEAN CORPUSCULAR HGB CONC 34.6 g/dl (32.0-36.5); MEAN CORPUSCULAR VOLUME 89.3 fl (80.0-96.0); MONO # 0.9 10^3/uL (0.0-0.8); MONO % 11.2 % (2.0-8.0); NEUTROPHILS # 4.8 10^3/uL (1.5-8.5); PLATELET COUNT, AUTOMATED 171 10^3/uL (150-450); RED BLOOD COUNT 3.82 10^6/uL (4.30-6.10); WHITE BLOOD COUNT 7.6 10^3/uL (4.0-10.0)
[2024-01-15 06:42] LABS: BLOOD UREA NITROGEN 8 MG/DL (9-23); CALCIUM LEVEL 8.8 MG/DL (8.3-10.6); CARBON DIOXIDE LEVEL 32 MMOL/L (20-31); CHLORIDE LEVEL 104 MMOL/L (98-107); CREATININE FOR GFR 0.56 MG/DL (0.70-1.30); GLOMERULAR FILTRATION RATE > 60.0 (>49); GLUCOSE, FASTING 147 MG/DL (74-106); MAGNESIUM LEVEL 1.7 MG/DL (1.8-2.4); POTASSIUM SERUM 3.9 MMOL/L (3.5-5.1); SODIUM LEVEL 140 MMOL/L (136-145)
[2024-01-15] MEDS: MAG SULF 1GM/100ML (MAG RUN) 1 GM in IV 1 EA IV ONE (07:40)
[2024-01-15 12:00] VITALS: BP 141/90; TEMP 97.3; O2SAT 96
[2024-01-15 19:43] VITALS: BP 140/90; TEMP 97.3; O2SAT 96
[2024-01-16 03:42] VITALS: BP 152/85; TEMP 97; O2SAT 96
[2024-01-16 07:00] LABS: BASO % 0.5 % (0.0-1.0); EOS # 0.2 10^3/uL (0.0-0.5); EOS % 2.5 % (0.0-3.0); HEMATOCRIT 36.6 % (42.0-52.0); HEMOGLOBIN 12.5 g/dl (13.5-17.5); LYMPH # 1.8 10^3/uL (1.5-5.0); MEAN CORPUSCULAR HEMOGLOBIN 30.3 pg (27.0-33.0); MEAN CORPUSCULAR HGB CONC 34.2 g/dl (32.0-36.5); MEAN CORPUSCULAR VOLUME 88.6 fl (80.0-96.0); MONO # 0.7 10^3/uL (0.0-0.8); MONO % 10.7 % (2.0-8.0); NEUTROPHILS # 3.5 10^3/uL (1.5-8.5); PLATELET COUNT, AUTOMATED 186 10^3/uL (150-450); RED BLOOD COUNT 4.13 10^6/uL (4.30-6.10); WHITE BLOOD COUNT 6.1 10^3/uL (4.0-10.0)
[2024-01-16 07:21] LABS: BLOOD UREA NITROGEN 9 MG/DL (9-23); CALCIUM LEVEL 8.9 MG/DL (8.3-10.6); CARBON DIOXIDE LEVEL 30 MMOL/L (20-31); CHLORIDE LEVEL 105 MMOL/L (98-107); CREATININE FOR GFR 0.54 MG/DL (0.70-1.30); GLOMERULAR FILTRATION RATE > 60.0 (>49); GLUCOSE, FASTING 176 MG/DL (74-106); MAGNESIUM LEVEL 1.8 MG/DL (1.8-2.4); POTASSIUM SERUM 4.1 MMOL/L (3.5-5.1); SODIUM LEVEL 139 MMOL/L (136-145)
[2024-01-16] MEDS: MAG SULF 1GM/100ML (MAG RUN) 1 GM in IV 1 EA IV ONE (08:37)
[2024-01-16] MEDS ORDERED: LEVO1TAB40 PO (10:49)
[2024-01-16 12:00] VITALS: BP 144/83; TEMP 97.2; O2SAT 97
== END 2024-01-16 12:19 | disposition home or self-care (01) | DRG 871 ==
LOC: EDBD 09:45 → M ED 09:45 → M ED INP 13:52 → EEVIPCON 13:52 → M MSPAV 15:10
PROVIDERS: ADMIT Internal Medicine; ATTEND Internal Medicine
DX: A41.9 Sepsis, unspecified organism (principal); G93.41 Metabolic encephalopathy; J18.9 Pneumonia, unspecified organism; N39.0 Urinary tract infection, site not specified; E87.20 Acidosis, unspecified; E11.9 Type 2 diabetes mellitus without complications; I10 Essential (primary) hypertension; G40.909 Epilepsy, unspecified, not intractable, without status epilepticus; F31.9 Bipolar disorder, unspecified; E78.5 Hyperlipidemia, unspecified; F42.9 Obsessive-compulsive disorder, unspecified; K21.9 Gastro-esophageal reflux disease without esophagitis; E83.42 Hypomagnesemia; F41.9 Anxiety disorder, unspecified; N40.0 Benign prostatic hyperplasia without lower urinary tract symptoms; F79 Unspecified intellectual disabilities; Z88.8 Allergy status to other drugs, medicaments and biological substances; Z79.899 Other long term (current) drug therapy

== ENCOUNTER 2024-02-04 00:50 | Emergency (ER) | payer MEDICARE, MEDICAID ==
[~2024-02-04] VITALS: Ht 170.2 cm; Wt 123.0 kg
[~2024-02-04 00:50] MED LIST changes: +GUAI100S51 PO; +LEVO1TAB40 PO; +POLY17PO18 PO; +[UNRECOGNIZED DRUG - CODE] PO
[2024-02-04 00:55] VITALS: BP 126/67; TEMP 96.8; O2SAT 100
== END 2024-02-04 04:25 | disposition home or self-care (01) ==
LOC: M ED 00:50
DX: T83.098A Other mechanical complication of other urinary catheter, initial encounter (principal); N40.1 Benign prostatic hyperplasia with lower urinary tract symptoms; K21.9 Gastro-esophageal reflux disease without esophagitis; F79 Unspecified intellectual disabilities; E78.5 Hyperlipidemia, unspecified; F41.9 Anxiety disorder, unspecified; F32.A Depression, unspecified; G47.00 Insomnia, unspecified; Z79.84 Long term (current) use of oral hypoglycemic drugs; Z79.899 Other long term (current) drug therapy; Z88.8 Allergy status to other drugs, medicaments and biological substances

== ENCOUNTER → 2024-04-25 | Outpatient (CLI) | payer MEDICARE, MEDICAID ==
[2024-04-25 14:38] LABS: BASO % 0.7 % (0.0-1.0); EOS # 0.1 10^3/uL (0.0-0.5); EOS % 1.6 % (0.0-3.0); HEMATOCRIT 38.6 % (42.0-52.0); HEMOGLOBIN 12.6 g/dl (13.5-17.5); LYMPH # 1.4 10^3/uL (1.5-5.0); LYMPH % 24.7 % (24.0-44.0); MEAN CORPUSCULAR HEMOGLOBIN 29.5 pg (27.0-33.0); MEAN CORPUSCULAR HGB CONC 32.6 g/dl (32.0-36.5); MEAN CORPUSCULAR VOLUME 90.4 fl (80.0-96.0); MONO # 0.6 10^3/uL (0.0-0.8); MONO % 9.8 % (2.0-8.0); NEUTROPHILS # 3.6 10^3/uL (1.5-8.5); NEUTROPHILS % 62.9 % (36.0-66.0); PLATELET COUNT, AUTOMATED 185 10^3/uL (150-450); RED BLOOD COUNT 4.27 10^6/uL (4.30-6.10); WHITE BLOOD COUNT 5.8 10^3/uL (4.0-10.0)
[2024-04-25 14:43] LABS: ALBUMIN 3.3 G/DL (3.2-5.2); ALKALINE PHOSPHATASE 57 U/L (46-116); ALT/SGPT 13 U/L (7.0-40); AST/SGOT < 8 U/L (<34); BILIRUBIN,TOTAL 0.3 MG/DL (0.3-1.2); BLOOD UREA NITROGEN 11 MG/DL (9-23); CALCIUM LEVEL 8.8 MG/DL (8.3-10.6); CARBON DIOXIDE LEVEL 35 MMOL/L (20-31); CHLORIDE LEVEL 100 MMOL/L (98-107); CREATININE FOR GFR 0.62 MG/DL (0.70-1.30); GLOMERULAR FILTRATION RATE > 60.0 (>49); GLUCOSE, FASTING 138 MG/DL (74-106); SODIUM LEVEL 136 MMOL/L (136-145); TOTAL PROTEIN 6.4 G/DL (5.7-8.2)
== END ==
LOC: M WUC 09:11
PROVIDERS: ATTEND Psychiatry & Neurology Neurology
DX: R56.9 Unspecified convulsions (principal)

== ENCOUNTER → 2024-05-01 | Outpatient (REF) | payer MEDICARE, MEDICAID ==
[2024-05-01 10:33] LABS: APPEARANCE, URINE CLOUDY (CLEAR); BACTERIA, URINE AUTO 2+ (NEGATIVE); BILIRUBIN, URINE AUTO NEGATIVE (NEGATIVE); BLOOD, URINE BLOOD 2+ (NEGATIVE); CALCIUM OXALATE CRYSTALS SMALL; COLOR, URINE AMBER (YELLOW); GLUCOSE, URINE (UA) AUTO NEGATIVE (NEGATIVE); KETONE, URINE AUTO 1+ mg/dL (NEGATIVE); LEUKOCYTE ESTERASE, URINE AUTO 2+ (NEGATIVE); NITRITE, URINE AUTO NEGATIVE (NEGATIVE); PROTEIN, URINE AUTO 2+ mg/dL (NEGATIVE); RBC, URINE AUTO 21 /HPF (0-3); SPECIFIC GRAVITY URINE AUTO 1.011 (1.002-1.035); SQUAMOUS EPITHELIAL CELL UR AU 0 /HPF (0-6); UROBILINOGEN, URINE AUTO 0.2 mg/dL (0.0-2.0); WBC, URINE AUTO 21 /HPF (0-3)
== END ==
LOC: M LAB REF 09:37
PROVIDERS: ATTEND Physician Assistant
DX: R33.9 Retention of urine, unspecified (principal)

== ENCOUNTER → 2024-05-08 | Outpatient (REF) | payer MEDICARE, MEDICAID | LOC: M LAB REF 09:26 | PROVIDERS: ATTEND Physician Assistant | DX: R30.0 Dysuria (principal) ==

== ENCOUNTER → 2024-05-16 | Outpatient (REF) | payer MEDICARE, MEDICAID ==
[2024-05-16 18:30] LABS: HEMOGLOBIN A1c 6.3 % (4.0-6.0)
== END ==
LOC: M LABWUC 17:14
PROVIDERS: ATTEND Family Medicine
DX: E11.9 Type 2 diabetes mellitus without complications (principal)

== ENCOUNTER → 2024-06-11 | Outpatient (CLI) | payer MEDICARE, MEDICAID | LOC: M WHC 14:26 | PROVIDERS: ATTEND Internal Medicine Endocrinology, Diabetes & Metabolism | DX: M81.0 Age-related osteoporosis without current pathological fracture (principal) ==

== ENCOUNTER → 2024-08-23 | Outpatient (CLI) | payer MEDICARE, MEDICAID ==
[2024-08-23 10:55] LABS: BASO % 0.6 % (0.0-1.0); EOS # 0.1 10^3/uL (0.0-0.5); EOS % 1.6 % (0.0-3.0); HEMATOCRIT 38.2 % (42.0-52.0); HEMOGLOBIN 12.7 g/dl (13.5-17.5); LYMPH # 1.9 10^3/uL (1.5-5.0); LYMPH % 28.3 % (24.0-44.0); MEAN CORPUSCULAR HEMOGLOBIN 30.1 pg (27.0-33.0); MEAN CORPUSCULAR HGB CONC 33.2 g/dl (32.0-36.5); MEAN CORPUSCULAR VOLUME 90.5 fl (80.0-96.0); MONO # 0.5 10^3/uL (0.0-0.8); MONO % 8.1 % (2.0-8.0); NEUTROPHILS # 4.1 10^3/uL (1.5-8.5); NEUTROPHILS % 61.1 % (36.0-66.0); PLATELET COUNT, AUTOMATED 162 10^3/uL (150-450); RED BLOOD COUNT 4.22 10^6/uL (4.30-6.10)
[2024-08-23 11:29] LABS: BLOOD UREA NITROGEN 18 MG/DL (9-23); CALCIUM LEVEL 8.9 MG/DL (8.3-10.6); CARBON DIOXIDE LEVEL 28 MMOL/L (20-31); CHLORIDE LEVEL 99 MMOL/L (98-107); CHOLESTEROL LEVEL 139 MG/DL (<200); CHOLESTEROL RISK RATIO 2.46 (<5); CREATININE FOR GFR 0.58 MG/DL (0.70-1.30); GLOMERULAR FILTRATION RATE > 60.0 (>49); GLUCOSE, FASTING 130 MG/DL (74-106); HDL CHOLESTEROL 56.3 MG/DL (>40); LDL CHOLESTEROL 61.9 MG/DL (<100); NON-HDL-C 82.7 MG/DL; POTASSIUM SERUM 4.2 MMOL/L (3.5-5.1); SODIUM LEVEL 140 MMOL/L (136-145); TRIGLYCERIDES LEVEL 104 MG/DL (<150)
[2024-08-23 12:03] LABS: HEMOGLOBIN A1c 6.3 % (4.0-6.0)
[2024-08-24 06:51] LABS: WHITE BLOOD COUNT 6.7 10^3/uL (4.0-10.0)
== END ==
LOC: M WUC 08:49
PROVIDERS: ATTEND Family Medicine
DX: E11.9 Type 2 diabetes mellitus without complications (principal); Z79.84 Long term (current) use of oral hypoglycemic drugs; I10 Essential (primary) hypertension

== ENCOUNTER 2024-09-14 15:23 | Emergency (ER) | payer MEDICARE, MEDICAID ==
[~2024-09-14] VITALS: Ht 170.2 cm; Wt 63.6 kg
[2024-09-14 16:37] LABS: VENOUS BASE EXCESS 5.5 (-2.0-2.0); VENOUS HCO3 32.2 MMOL/L (23.0-27.0); VENOUS O2 SATURATION 49.3 % (60.0-80.0); VENOUS PARTIAL PRESSURE CO2 56.4 mmHg (38.0-50.0); VENOUS PARTIAL PRESSURE O2 28.8 mmHg (30.0-50.0); VENOUS PH 7.375 UNITS (7.330-7.430); VENOUS STANDARD HCO3 28.3 MMOL/L
[2024-09-14 16:43] LABS: BASO % 0.1 % (0.0-1.0); EOS # 0.1 10^3/uL (0.0-0.5); EOS % 0.9 % (0.0-3.0); HEMATOCRIT 35.8 % (42.0-52.0); HEMOGLOBIN 12.1 g/dl (13.5-17.5); LYMPH # 1.4 10^3/uL (1.5-5.0); LYMPH % 18.2 % (24.0-44.0); MEAN CORPUSCULAR HEMOGLOBIN 30.6 pg (27.0-33.0); MEAN CORPUSCULAR HGB CONC 33.8 g/dl (32.0-36.5); MEAN CORPUSCULAR VOLUME 90.4 fl (80.0-96.0); MONO # 0.7 10^3/uL (0.0-0.8); MONO % 9.6 % (2.0-8.0); NEUTROPHILS # 5.3 10^3/uL (1.5-8.5); NEUTROPHILS % 70.9 % (36.0-66.0); PLATELET COUNT, AUTOMATED 145 10^3/uL (150-450); RED BLOOD COUNT 3.96 10^6/uL (4.30-6.10); WHITE BLOOD COUNT 7.4 10^3/uL (4.0-10.0)
[2024-09-14 17:06] LABS: ALBUMIN 2.8 G/DL (3.2-5.2); ALKALINE PHOSPHATASE 58 U/L (40-129); ALT/SGPT 28 U/L (7.0-40); AST/SGOT 14 U/L (<34); BILIRUBIN,DIRECT 0.2 MG/DL (<0.4); BILIRUBIN,TOTAL 0.5 MG/DL (0.3-1.2); BLOOD UREA NITROGEN 11 MG/DL (9-23); CALCIUM LEVEL 8.8 MG/DL (8.3-10.6); CARBON DIOXIDE LEVEL 30 MMOL/L (20-31); CHLORIDE LEVEL 99 MMOL/L (98-107); CREATININE FOR GFR 0.46 MG/DL (0.70-1.30); GLOMERULAR FILTRATION RATE > 60.0 (>49); GLUCOSE, FASTING 120 MG/DL (74-106); POTASSIUM SERUM 3.8 MMOL/L (3.5-5.1); SODIUM LEVEL 137 MMOL/L (136-145); TOTAL PROTEIN 6.4 G/DL (5.7-8.2)
[2024-09-14 17:08] LABS: THYROXINE (T4) 8.4 UG/DL (4.5-10.9)
[2024-09-14 17:09] LABS: THYROID STIMULATING HORMONE 1.361 uIU/ML (0.55-4.78)
[2024-09-14 17:09] LABS: KETONE, URINE AUTO RFX TRACE mg/dL (NEGATIVE); MUCUS, URINE RFX SMALL (NEGATIVE); NITRITE, URINE AUTO RFX NEGATIVE (NEGATIVE); RBC, URINE AUTO RFX 4 /HPF (0-3); SQUAM EPITHELIAL CELL UR AURFX 0 /HPF (0-6)
[2024-09-14 17:15] LABS: LEUKOCYTE ESTERASE UR AUTO RFX 3+ (NEGATIVE); WBC, URINE AUTO RFX 169 /HPF (0-3)
[2024-09-14] MEDS ORDERED: AMOX875T2 PO (21:12)
[2024-09-14] MEDS ORDERED: PRED20TA PO (21:13)
[2024-09-14] MEDS ORDERED: NEBU1EAC80 MC (21:13)
[2024-09-14] MEDS ORDERED: IPRA0.00 NEB (21:14)
[2024-09-14] MEDS ORDERED: ONDA-282 PO (21:18)
[2024-09-14] MEDS: methylPREDNISolone 125MG 2ML VIAL IM ONE (21:34)
[2024-09-14] MEDS: AUGMENTIN 875 MG TAB PO ONE (21:34)
[2024-09-14 21:48] VITALS: BP 165/85; TEMP 97.5; O2SAT 97
== END 2024-09-14 21:54 | disposition home or self-care (01) ==
LOC: M ED 15:23
DX: J18.9 Pneumonia, unspecified organism (principal); E11.9 Type 2 diabetes mellitus without complications; I10 Essential (primary) hypertension; K21.9 Gastro-esophageal reflux disease without esophagitis; K22.70 Barrett's esophagus without dysplasia
CPT/HCPCS: 71046; 80048; 80076; 81001; 82803; 83605; 83880; 84436; 84443; 85025; 87040; 87088; 87184; 87186; 87486; 87581; 87633; 87798; 93005; 96372; 99284; J2919

== ENCOUNTER → 2024-11-08 | Outpatient (REF) | payer MEDICARE, MEDICAID ==
[~2024-11-08] MED LIST changes: +IPRA0.00 NEB; +NEBU1EAC80 MC; +ONDA-282 PO; +PRED20TA PO
[2024-11-08 13:10] LABS: BASO % 0.6 % (0.0-1.0); EOS # 0.1 10^3/uL (0.0-0.5); EOS % 1.6 % (0.0-3.0); HEMATOCRIT 36.7 % (42.0-52.0); HEMOGLOBIN 11.8 g/dl (13.5-17.5); LYMPH # 1.7 10^3/uL (1.5-5.0); LYMPH % 24.9 % (24.0-44.0); MEAN CORPUSCULAR HEMOGLOBIN 29.5 pg (27.0-33.0); MEAN CORPUSCULAR HGB CONC 32.2 g/dl (32.0-36.5); MEAN CORPUSCULAR VOLUME 91.8 fl (80.0-96.0); MONO # 0.6 10^3/uL (0.0-0.8); MONO % 8.1 % (2.0-8.0); NEUTROPHILS # 4.4 10^3/uL (1.5-8.5); NEUTROPHILS % 64.4 % (36.0-66.0); PLATELET COUNT, AUTOMATED 211 10^3/uL (150-450); WHITE BLOOD COUNT 6.9 10^3/uL (4.0-10.0)
[2024-11-08 13:41] LABS: HEMOGLOBIN A1c 6.4 % (4.0-6.0)
[2024-11-08 13:44] LABS: ALBUMIN 2.9 G/DL (3.2-5.2); ALKALINE PHOSPHATASE 50 U/L (40-129); ALT/SGPT 11 U/L (7.0-40); AST/SGOT < 8 U/L (<34); BILIRUBIN,TOTAL 0.2 MG/DL (0.3-1.2); BLOOD UREA NITROGEN 16 MG/DL (9-23); CALCIUM LEVEL 8.9 MG/DL (8.3-10.6); CARBON DIOXIDE LEVEL 33 MMOL/L (20-31); CHLORIDE LEVEL 98 MMOL/L (98-107); CREATININE FOR GFR 0.64 MG/DL (0.70-1.30); GLOMERULAR FILTRATION RATE > 90.0 (>49); GLUCOSE, FASTING 174 MG/DL (74-106); POTASSIUM SERUM 4.7 MMOL/L (3.5-5.1); SODIUM LEVEL 139 MMOL/L (136-145); TOTAL PROTEIN 5.9 G/DL (5.7-8.2)
[2024-11-08 15:07] LABS: AMORPHOUS SEDIMENT SMALL (NEGATIVE); APPEARANCE, URINE CLOUDY (CLEAR); BACTERIA, URINE AUTO 1+ (NEGATIVE); BILIRUBIN, URINE AUTO NEGATIVE (NEGATIVE); BLOOD, URINE BLOOD 2+ (NEGATIVE); COLOR, URINE AMBER (YELLOW); GLUCOSE, URINE (UA) AUTO NEGATIVE (NEGATIVE); KETONE, URINE AUTO 1+ mg/dL (NEGATIVE); LEUKOCYTE ESTERASE, URINE AUTO 2+ (NEGATIVE); MUCUS, URINE LARGE (NEGATIVE); NITRITE, URINE AUTO NEGATIVE (NEGATIVE); PROTEIN, URINE AUTO 1+ mg/dL (NEGATIVE); RBC, URINE AUTO 132 /HPF (0-3); SPECIFIC GRAVITY URINE AUTO 1.019 (1.002-1.035); SQUAMOUS EPITHELIAL CELL UR AU 1 /HPF (0-6); WBC, URINE AUTO TNTC /HPF (0-3)
== END ==
LOC: M LABDRAWP 12:06 → EEVIPCON 12:06
PROVIDERS: ATTEND Family Medicine
DX: R05.1 Acute cough (principal); E11.9 Type 2 diabetes mellitus without complications; N39.0 Urinary tract infection, site not specified

== ENCOUNTER → 2024-11-16 | Outpatient (CLI) | payer MEDICARE, MEDICAID ==
[~2024-11-16] MED LIST changes: +DOXY-441 PO; +KETO120S5 TOP; -KETO2SHA8 TOP
[2024-11-16 13:59] LABS: BASO # 0.1 10^3/uL (0.0-0.2); BASO % 0.6 % (0.0-1.0); EOS # 0.2 10^3/uL (0.0-0.5); HEMATOCRIT 38.1 % (42.0-52.0); HEMOGLOBIN 12.3 g/dl (13.5-17.5); LYMPH # 1.9 10^3/uL (1.5-5.0); LYMPH % 22.9 % (24.0-44.0); MEAN CORPUSCULAR HEMOGLOBIN 29.4 pg (27.0-33.0); MEAN CORPUSCULAR HGB CONC 32.3 g/dl (32.0-36.5); MEAN CORPUSCULAR VOLUME 91.1 fl (80.0-96.0); MONO # 0.7 10^3/uL (0.0-0.8); MONO % 8.6 % (2.0-8.0); NEUTROPHILS # 5.5 10^3/uL (1.5-8.5); NEUTROPHILS % 65.7 % (36.0-66.0); PLATELET COUNT, AUTOMATED 214 10^3/uL (150-450); RED BLOOD COUNT 4.18 10^6/uL (4.30-6.10); WHITE BLOOD COUNT 8.4 10^3/uL (4.0-10.0)
[2024-11-16 14:07] LABS: VALPROIC ACID (DEPAKOTE) 42.7 UG/ML (50.0-100.0)
[2024-11-16 14:13] LABS: ALBUMIN 3.1 G/DL (3.2-5.2); ALKALINE PHOSPHATASE 49 U/L (40-129); ALT/SGPT 12 U/L (7.0-40); AST/SGOT 8 U/L (<34); BILIRUBIN,TOTAL 0.3 MG/DL (0.3-1.2); BLOOD UREA NITROGEN 15 MG/DL (9-23); CALCIUM LEVEL 9.2 MG/DL (8.3-10.6); CARBON DIOXIDE LEVEL 32 MMOL/L (20-31); CHLORIDE LEVEL 98 MMOL/L (98-107); CREATININE FOR GFR 0.58 MG/DL (0.70-1.30); GLOMERULAR FILTRATION RATE > 90.0 (>49); GLUCOSE, FASTING 135 MG/DL (74-106); POTASSIUM SERUM 4.1 MMOL/L (3.5-5.1); SODIUM LEVEL 139 MMOL/L (136-145); TOTAL PROTEIN 6.2 G/DL (5.7-8.2)
== END ==
LOC: M WUC 08:30
PROVIDERS: ATTEND Psychiatry & Neurology Neurology
DX: R56.9 Unspecified convulsions (principal)

== ENCOUNTER 2024-12-01 10:29 | Emergency (ER) | payer MEDICARE, MEDICAID ==
[~2024-12-01] VITALS: Ht 170.2 cm; Wt 79.5 kg
[~2024-12-01 10:29] MED LIST changes: -DOXY-441 PO
[2024-12-01] MEDS: IPRATROPIUM 0.5MG/ALBUTEROL 2.5MG INH SOL UD 3ML NEB ONE (12:22)
[2024-12-01 12:30] LABS: BASO % 0.4 % (0.0-1.0); EOS # 0.3 10^3/uL (0.0-0.5); EOS % 5.2 % (0.0-3.0); HEMATOCRIT 35.7 % (42.0-52.0); HEMOGLOBIN 11.9 g/dl (13.5-17.5); LYMPH # 1.3 10^3/uL (1.5-5.0); LYMPH % 23.1 % (24.0-44.0); MEAN CORPUSCULAR HEMOGLOBIN 29.8 pg (27.0-33.0); MEAN CORPUSCULAR HGB CONC 33.3 g/dl (32.0-36.5); MEAN CORPUSCULAR VOLUME 89.5 fl (80.0-96.0); MONO # 0.7 10^3/uL (0.0-0.8); MONO % 13.2 % (2.0-8.0); NEUTROPHILS # 3.2 10^3/uL (1.5-8.5); NEUTROPHILS % 57.9 % (36.0-66.0); PLATELET COUNT, AUTOMATED 141 10^3/uL (150-450); RED BLOOD COUNT 3.99 10^6/uL (4.30-6.10); WHITE BLOOD COUNT 5.5 10^3/uL (4.0-10.0)
[2024-12-01] MEDS: ONDANSETRON 4MG 2ML VIAL IV ONE (12:37)
[2024-12-01] MEDS: NS (Normal Saline) 0.9% 1,000 ML IV ONE ×2 (12:37→14:46)
[2024-12-01 12:57] LABS: BLOOD UREA NITROGEN 11 MG/DL (9-23); CALCIUM LEVEL 8.4 MG/DL (8.3-10.6); CARBON DIOXIDE LEVEL 31 MMOL/L (20-31); CHLORIDE LEVEL 99 MMOL/L (98-107); CREATININE FOR GFR 0.56 MG/DL (0.70-1.30); GLOMERULAR FILTRATION RATE > 90.0 (>49); GLUCOSE, FASTING 186 MG/DL (74-106); POTASSIUM SERUM 3.8 MMOL/L (3.5-5.1); SODIUM LEVEL 138 MMOL/L (136-145)
[2024-12-01] MEDS: AMPICILLIN SOD/SULBACTAM SOD 3 GM in DEXTROSE 5% (D5W) MINI-BAG PLU 100 ML IV ONE (13:02)
[2024-12-01] MEDS: PROMETHAZINE 25MG/ML 1ML VIAL IV ONE (14:30)
[2024-12-01 16:00] VITALS: O2SAT 95
[2024-12-01] MEDS ORDERED: DOXY-441 PO (17:08)
[2024-12-01] MEDS ORDERED: AMOX875T2 PO (17:08)
[2024-12-01] MEDS ORDERED: ONDA-282 PO (17:09)
[2024-12-01 17:20] VITALS: TEMP 97.4
[2024-12-01 17:31] VITALS: BP 155/75
== END 2024-12-01 17:33 | disposition home or self-care (01) ==
LOC: M ED 10:29
DX: J18.1 Lobar pneumonia, unspecified organism (principal); I10 Essential (primary) hypertension; E78.5 Hyperlipidemia, unspecified; E11.9 Type 2 diabetes mellitus without complications; Z79.899 Other long term (current) drug therapy; Z88.8 Allergy status to other drugs, medicaments and biological substances
CPT/HCPCS: 71045; 80048; 83605; 85025; 87040; 87486; 87581; 87633; 87798; 94640; 96361; 96365; 96375; 99284; J0295; J2405; J2550

== ENCOUNTER → 2024-12-06 | Outpatient (CLI) | payer MEDICARE, MEDICAID ==
[~2024-12-06] MED LIST changes: +DOXY-441 PO
[2024-12-06 12:08] LABS: BASO # 0.1 10^3/uL (0.0-0.2); BASO % 0.7 % (0.0-1.0); EOS # 0.2 10^3/uL (0.0-0.5); EOS % 2.2 % (0.0-3.0); HEMOGLOBIN 13.1 g/dl (13.5-17.5); LYMPH # 2.1 10^3/uL (1.5-5.0); LYMPH % 30.1 % (24.0-44.0); MEAN CORPUSCULAR HEMOGLOBIN 29.2 pg (27.0-33.0); MEAN CORPUSCULAR HGB CONC 32.8 g/dl (32.0-36.5); MEAN CORPUSCULAR VOLUME 89.3 fl (80.0-96.0); MONO # 0.7 10^3/uL (0.0-0.8); MONO % 9.5 % (2.0-8.0); NEUTROPHILS # 3.9 10^3/uL (1.5-8.5); NEUTROPHILS % 56.6 % (36.0-66.0); PLATELET COUNT, AUTOMATED 216 10^3/uL (150-450); RED BLOOD COUNT 4.48 10^6/uL (4.30-6.10); WHITE BLOOD COUNT 6.9 10^3/uL (4.0-10.0)
[2024-12-06 12:43] LABS: HEMOGLOBIN A1c 6.8 % (4.0-6.0); VALPROIC ACID (DEPAKOTE) 60.5 UG/ML (50.0-100.0)
[2024-12-06 12:46] LABS: ALBUMIN 3.3 G/DL (3.2-5.2); ALKALINE PHOSPHATASE 47 U/L (40-129); ALT/SGPT 15 U/L (7.0-40); AST/SGOT < 8 U/L (<34); BILIRUBIN,TOTAL 0.3 MG/DL (0.3-1.2); BLOOD UREA NITROGEN 17 MG/DL (9-23); CALCIUM LEVEL 8.7 MG/DL (8.3-10.6); CARBON DIOXIDE LEVEL 35 MMOL/L (20-31); CHLORIDE LEVEL 100 MMOL/L (98-107); CHOLESTEROL LEVEL 142 MG/DL (<200); CHOLESTEROL RISK RATIO 2.45 (<5); CREATININE FOR GFR 0.59 MG/DL (0.70-1.30); GLOMERULAR FILTRATION RATE > 90.0 (>49); GLUCOSE, FASTING 133 MG/DL (74-106); HDL CHOLESTEROL 57.9 MG/DL (>40); LDL CHOLESTEROL 71.9 MG/DL (<100); NON-HDL-C 84.1 MG/DL; POTASSIUM SERUM 3.7 MMOL/L (3.5-5.1); PROLACTIN 13.18 NG/ML (2.1-17.7); SODIUM LEVEL 143 MMOL/L (136-145); TOTAL PROTEIN 6.8 G/DL (5.7-8.2); TRIGLYCERIDES LEVEL 61 MG/DL (<150)
== END ==
LOC: M WUC 08:14
PROVIDERS: ATTEND Physician Assistant
DX: Z79.899 Other long term (current) drug therapy (principal)

== ENCOUNTER 2025-02-13 16:15 | Emergency (ER) | payer MEDICARE, MEDICAID ==
[~2025-02-13] VITALS: Ht 170.2 cm; Wt 61.4 kg
[~2025-02-13 16:15] MED LIST changes: +DEPA1TAB3 PO; -DEPA250T32 PO; +DIVA-41 PO; +DIVA-65 PO; -DIVA500T94 PO; +LEVO75TAB PO; +VITA200028 PO
[2025-02-13 18:11] LABS: KETONE, URINE AUTO RFX 1+ mg/dL (NEGATIVE); MUCUS, URINE RFX SMALL (NEGATIVE); NITRITE, URINE AUTO RFX NEGATIVE (NEGATIVE); RBC, URINE AUTO RFX TNTC /HPF (0-3); SQUAM EPITHELIAL CELL UR AURFX 0 /HPF (0-6)
[2025-02-13 18:38] LABS: LEUKOCYTE ESTERASE UR AUTO RFX 3+ (NEGATIVE); WBC, URINE AUTO RFX TNTC /HPF (0-3)
[2025-02-13] MEDS ORDERED: CIPR500T39 PO (21:05)
[2025-02-13 21:14] VITALS: BP 189/90; TEMP 97.6; O2SAT 98
[2025-02-13] MEDS: CIPROFLOXACIN 500 MG TABLET PO ONE (21:16)
== END 2025-02-13 21:24 | disposition home or self-care (01) ==
LOC: M ED 16:15
DX: N39.0 Urinary tract infection, site not specified (principal); I10 Essential (primary) hypertension; M85.80 Other specified disorders of bone density and structure, unspecified site; N40.1 Benign prostatic hyperplasia with lower urinary tract symptoms; K59.00 Constipation, unspecified; Z88.8 Allergy status to other drugs, medicaments and biological substances; Z79.899 Other long term (current) drug therapy; Z79.84 Long term (current) use of oral hypoglycemic drugs; Z79.1 Long term (current) use of non-steroidal anti-inflammatories (NSAID)

== ENCOUNTER → 2025-03-15 | Outpatient (CLI) | payer MEDICARE, MEDICAID ==
[2025-03-15 10:42] LABS: CALCIUM LEVEL 8.9 MG/DL (8.3-10.6); CARBON DIOXIDE LEVEL 30 MMOL/L (20-31); CHLORIDE LEVEL 98 MMOL/L (98-107); CREATININE FOR GFR 0.59 MG/DL (0.70-1.30); GLOMERULAR FILTRATION RATE > 90.0 (>49); POTASSIUM SERUM 4.1 MMOL/L (3.5-5.1); SODIUM LEVEL 140 MMOL/L (136-145)
[2025-03-15 10:43] LABS: TOTAL 25(OH) VITAMIN D 119.5 NG/ML (20.0-100.0)
== END ==
LOC: M PLALAB 08:56
PROVIDERS: ATTEND Nurse Practitioner Family
DX: M81.0 Age-related osteoporosis without current pathological fracture (principal)

== ENCOUNTER 2025-03-22 11:49 | Emergency (ER) | payer MEDICARE, MEDICAID ==
[~2025-03-22] VITALS: Ht 170.2 cm; Wt 54.5 kg
[2025-03-22 15:00] VITALS: BP 130/63; TEMP 97.9; O2SAT 100
== END 2025-03-22 15:18 | disposition home or self-care (01) ==
LOC: M ED 11:49
DX: T17.920A Food in respiratory tract, part unspecified causing asphyxiation, initial encounter (principal); Z79.84 Long term (current) use of oral hypoglycemic drugs; Z79.899 Other long term (current) drug therapy; Z88.8 Allergy status to other drugs, medicaments and biological substances

== ENCOUNTER 2025-05-30 11:14 | Emergency (ER) | payer MEDICARE, MEDICAID ==
[2025-05-30 11:19] VITALS: TEMP 97.6
[2025-05-30 12:39] LABS: BASO # 0.0 10^3/uL (0.0-0.2); BASO % 0.4 % (0.0-1.0); EOS # 0.1 10^3/uL (0.0-0.5); EOS % 1.4 % (0.0-3.0); LYMPH # 2.0 10^3/uL (1.5-5.0); LYMPH % 25.4 % (24.0-44.0); MONO # 0.7 10^3/uL (0.0-0.8); MONO % 9.2 % (2.0-8.0); NEUTROPHILS # 5.0 10^3/uL (1.5-8.5); NEUTROPHILS % 63.3 % (36.0-66.0); PLATELET COUNT, AUTOMATED 146 10^3/uL (150-450)
[2025-05-30 13:13] LABS: ALT/SGPT 11 U/L (7.0-40); AST/SGOT 9 U/L (<34); CALCIUM LEVEL 8.9 MG/DL (8.3-10.6); CARBON DIOXIDE LEVEL 30 MMOL/L (20-31); CHLORIDE LEVEL 100 MMOL/L (98-107); CREATININE FOR GFR 0.64 MG/DL (0.70-1.30); GLOMERULAR FILTRATION RATE > 90.0 (>49); POTASSIUM SERUM 3.9 MMOL/L (3.5-5.1); SODIUM LEVEL 140 MMOL/L (136-145)
[2025-05-30 15:09] LABS: APPEARANCE, URINE CLOUDY (CLEAR); BACTERIA, URINE AUTO 2+ (NEGATIVE); BILIRUBIN, URINE AUTO NEGATIVE (NEGATIVE); BLOOD, URINE BLOOD NEGATIVE (NEGATIVE); CALCIUM OXALATE CRYSTALS SMALL; GLUCOSE, URINE (UA) AUTO NEGATIVE (NEGATIVE); KETONE, URINE AUTO 1+ mg/dL (NEGATIVE); LEUKOCYTE ESTERASE, URINE AUTO 3+ (NEGATIVE); MUCUS, URINE SMALL (NEGATIVE); NITRITE, URINE AUTO NEGATIVE (NEGATIVE); PROTEIN, URINE AUTO 1+ mg/dL (NEGATIVE); RBC, URINE AUTO 34 /HPF (0-3); SPECIFIC GRAVITY URINE AUTO 1.015 (1.002-1.035); SQUAMOUS EPITHELIAL CELL UR AU 0 /HPF (0-6); UROBILINOGEN, URINE AUTO 0.2 mg/dL (0.0-2.0); WBC, URINE AUTO TNTC /HPF (0-3)
[2025-05-30] MEDS ORDERED: BACT800T5 PO (16:11)
[2025-05-30] MEDS: BACTRIM 160MG/800MG DS TAB PO ONE (16:18)
[2025-05-30 16:23] VITALS: BP 147/67; O2SAT 99
== END 2025-05-30 16:41 | disposition home or self-care (01) ==
LOC: M ED 11:14
DX: N39.0 Urinary tract infection, site not specified (principal); R53.1 Weakness; E11.9 Type 2 diabetes mellitus without complications; I10 Essential (primary) hypertension; F79 Unspecified intellectual disabilities; F31.9 Bipolar disorder, unspecified; Z85.528 Personal history of other malignant neoplasm of kidney; Z79.84 Long term (current) use of oral hypoglycemic drugs; Z79.899 Other long term (current) drug therapy; Z88.8 Allergy status to other drugs, medicaments and biological substances

== ENCOUNTER 2025-06-24 09:50 | Emergency (ER) | payer MEDICARE, MEDICAID ==
[2025-06-24 10:04] VITALS: BP 117/59; TEMP 96.6; O2SAT 100
== END 2025-06-24 11:10 | disposition home or self-care (01) ==
LOC: M ED 09:50
DX: Q54.1 Hypospadias, penile (principal); E11.9 Type 2 diabetes mellitus without complications; C64.9 Malignant neoplasm of unspecified kidney, except renal pelvis; R33.9 Retention of urine, unspecified; Z96.0 Presence of urogenital implants; Z79.84 Long term (current) use of oral hypoglycemic drugs; Z79.899 Other long term (current) drug therapy; Z88.8 Allergy status to other drugs, medicaments and biological substances

== ENCOUNTER 2025-06-27 09:21 | Emergency (ER) | payer MEDICARE, MEDICAID ==
[~2025-06-27] VITALS: Ht 175.3 cm; Wt 61.4 kg
[2025-06-27] MEDS: NS (Normal Saline) 0.9% 1,000 ML IV ONE (10:01)
[2025-06-27 10:04] LABS: VENOUS BASE EXCESS 4.2 (-2.0-2.0); VENOUS HCO3 30.4 MMOL/L (23.0-27.0); VENOUS O2 SATURATION 62.6 % (60.0-80.0); VENOUS PARTIAL PRESSURE CO2 52.5 mmHg (38.0-50.0); VENOUS PARTIAL PRESSURE O2 34.7 mmHg (30.0-50.0); VENOUS PH 7.381 UNITS (7.330-7.430); VENOUS STANDARD HCO3 27.4 MMOL/L; VENOUS TOTAL CO2 32.0 MMOL/L (24.0-28.0)
[2025-06-27 10:09] LABS: BASO # 0.0 10^3/uL (0.0-0.2); BASO % 0.4 % (0.0-1.0); EOS # 0.1 10^3/uL (0.0-0.5); EOS % 1.4 % (0.0-3.0); LYMPH # 2.2 10^3/uL (1.5-5.0); LYMPH % 26.7 % (24.0-44.0); MONO # 0.8 10^3/uL (0.0-0.8); MONO % 10.0 % (2.0-8.0); NEUTROPHILS # 5.0 10^3/uL (1.5-8.5); NEUTROPHILS % 61.1 % (36.0-66.0); PLATELET COUNT, AUTOMATED 159 10^3/uL (150-450)
[2025-06-27 10:36] LABS: OSMOLALITY SERUM 295 MOSM/KG (280-301)
[2025-06-27 10:40] LABS: ALT/SGPT 11 U/L (7.0-40); AST/SGOT < 8 U/L (<34); CALCIUM LEVEL 8.5 MG/DL (8.3-10.6); CARBON DIOXIDE LEVEL 32 MMOL/L (20-31); CHLORIDE LEVEL 99 MMOL/L (98-107); CREATININE FOR GFR 0.63 MG/DL (0.70-1.30); GLOMERULAR FILTRATION RATE > 90.0 (>49); POTASSIUM SERUM 4.1 MMOL/L (3.5-5.1); SODIUM LEVEL 141 MMOL/L (136-145)
[2025-06-27 13:04] VITALS: BP 135/63; TEMP 97.1; O2SAT 98
== END 2025-06-27 13:18 | disposition home or self-care (01) ==
LOC: EDBD 09:21 → M ED 09:21
DX: E11.65 Type 2 diabetes mellitus with hyperglycemia (principal); I10 Essential (primary) hypertension; F79 Unspecified intellectual disabilities; F31.9 Bipolar disorder, unspecified; D49.511 Neoplasm of unspecified behavior of right kidney; Z79.899 Other long term (current) drug therapy; Z88.8 Allergy status to other drugs, medicaments and biological substances

== ENCOUNTER → 2025-07-12 | Outpatient (CLI) | payer MEDICARE, MEDICAID | LOC: M RAD 14:29 | PROVIDERS: ATTEND Family Medicine | DX: N50.9 Disorder of male genital organs, unspecified (principal); R93.813 Abnormal radiologic findings on diagnostic imaging of testicles, bilateral ==